=== PATIENT | male | born 1965 | race Caucasian/White ===

== ENCOUNTER 2020-02-06 07:38 | Outpatient (REF) | payer BC, SELFPAY ==
[2020-02-06 11:10] LABS: Estimated Average Glucose 194 mg/dL; Hemoglobin A1c % 8.4 %
[2020-02-06 11:28] LABS: Anion Gap 17 (12-20); Blood Urea Nitrogen 13 mg/dL (9-16); Calcium 9.4 mg/dL (8.4-10.2); Carbon Dioxide 24 mmol/L (22-29); Chloride 102 mmol/L (96-108); Estimated Glomerular Filt Rate > 60; Glucose Random 210 mg/dL (60-115); Potassium 4.7 mmol/l (3.3-5.1); Sodium 138 mmol/L (135-145)
== END 2020-02-06 07:39 | disposition home or self-care (01) ==
LOC: HO.10HDL 07:38
PROVIDERS: Visit Provider Internal Medicine
DX: E11.9 Type 2 diabetes mellitus without complications (principal); I10 Essential (primary) hypertension
CPT/HCPCS: 80048; 83036

== ENCOUNTER 2020-03-07 11:49 | Outpatient (REF) | payer BC, SELFPAY ==
[2020-03-07 14:07] LABS: Glucose Urine UA 250 MG/DL (NEG); Leukocyte Esterase Urine NEG (NEG); Nitrite Urine NEG (NEG); PH 5.5 (5.0-8.0); Specific Gravity - Urine >= 1.030 (1.005-1.025); Urine Blood 3+ (NEG); Urine Ketones 5 MG/DL (NEG); Urine Protein NEG (NEG-TRACE)
[2020-03-07 14:08] LABS: Appearance Urine CLEAR; Color Urine YELLOW
[2020-03-07 14:18] LABS: Calcium Oxalate Crystals Urine 2+ /LPF; Mucus Urine 2+ /LPF; Squamous Epithelial Cell Urine 1+ /LPF; WBC Urine 0-2 /HPF (0-4)
== END 2020-03-07 11:50 | disposition home or self-care (01) ==
LOC: HO.10HDL 11:49
PROVIDERS: Visit Provider Internal Medicine
DX: R31.9 Hematuria, unspecified (principal)
CPT/HCPCS: 81001; 87086; 87088

== ENCOUNTER 2020-09-25 07:20 | Outpatient (REF) | payer BC, SELFPAY ==
[2020-09-25 08:21] LABS: MANUAL DIFF FLAG NO
[2020-09-25 08:30] LABS: Basophils Percent Auto 0.8 % (0-2); Eosinophils Absolute Auto 0.1 X10*3/uL (0.0-0.4); Eosinophils Percent Auto 2.5 % (0-4); Hematocrit 48.1 % (42-52); Hemoglobin 15.6 g/dl (14.0-18.0); Imm Gran Abs Auto 0.02 X10*3/uL (0.00-0.03); Imm Gran Pct Auto 0.4 % (0.0-0.4); Lymphocytes Absolute Auto 1.4 X10*3/uL (1.2-4.9); Lymphocytes Percent Auto 27.3 % (20-40); Mean Corpuscular HGB Conc 32.4 g/dl (31.0-36.0); Mean Corpuscular Hemoglobin 30.1 pg (27.0-33.0); Mean Corpuscular Volume 92.9 fL (80-98); Mean Platelet Volume 9.5 fL (9.4-12.4); Monocytes Absolute Auto 0.5 X10*3/uL (0.1-1.2); Monocytes Percent Auto 9.1 % (2-11); Neutrophils Absolute Auto 3.2 X10*3/uL (2.0-8.3); Neutrophils Percent Auto 59.9 % (45-73); Platelet Count 211 X10*3/uL (160-400); Red Blood Count 5.18 X10*6/uL (4.60-5.80); Red Cell Distribution Width 11.6 % (11.0-16.0); White Blood Count 5.3 X10*3/uL (4.8-10.8)
[2020-09-25 08:33] LABS: Estimated Average Glucose 186 mg/dL; Hemoglobin A1c % 8.1 %
[2020-09-25 08:49] LABS: Alanine Aminotransferase 34 U/L (0-40); Albumin Level 4.1 g/dL (3.5-5.0); Alkaline Phosphatase 68 U/L (39-117); Anion Gap 11 (12-20); Aspartate Amino Transferase 26 U/L (5-37); Bilirubin Total 0.8 mg/dL (0.0-1.0); Blood Urea Nitrogen 13 mg/dL (9-16); Calcium 9.2 mg/dL (8.4-10.2); Carbon Dioxide 27 mmol/L (22-29); Chloride 106 mmol/L (96-108); Cholesterol 161 mg/dL; Estimated Glomerular Filt Rate > 60; Glucose Random 132 mg/dL (60-115); HDL Cholesterol 34 mg/dL; LDL Cholesterol Calculated 104 mg/dl; Potassium 4.4 mmol/L (3.3-5.1); Sodium 140 mmol/L (135-145); Total Protein 6.7 g/dL (6.5-8.0); Triglycerides 118 mg/dL
[2020-09-25 09:13] LABS: Microalbum/Creatinine Ratio Ur 8.6 ug/mg cr
== END 2020-09-25 07:21 | disposition home or self-care (01) ==
LOC: HO.LAB 07:20
PROVIDERS: PCP Internal Medicine; Visit Provider Internal Medicine
DX: E11.9 Type 2 diabetes mellitus without complications (principal); N20.0 Calculus of kidney
CPT/HCPCS: 36415; 80053; 80061; 82043; 83036; 85025

== ENCOUNTER 2020-09-30 10:44 | Outpatient (REF) | payer BC, SELFPAY ==
[2020-09-30 13:59] LABS: Glucose Urine UA NEG (NEG); Leukocyte Esterase Urine NEG (NEG); Nitrite Urine NEG (NEG); PH 5.5 (5.0-8.0); Specific Gravity - Urine >= 1.030 (1.005-1.025); Urine Blood NEG (NEG); Urine Ketones 5 MG/DL (NEG); Urine Protein NEG (NEG-TRACE)
[2020-09-30 14:17] LABS: Appearance Urine CLEAR; Color Urine YELLOW
[2020-09-30 14:33] LABS: C Reactive Protein 0.22 mg/dL (< or = 0.50)
[2020-09-30 14:46] LABS: Vitamin B12 315 pg/mL (200-900)
[2020-09-30 15:07] LABS: Creatinine Urine 229.94 mg/dL; Microalbum/Creatinine Ratio Ur 10.8 ug/mg cr
[2020-10-03 14:36] LABS: Anti Nuclear Antibody Screen NEGATIVE (NEGATIVE)
== END 2020-09-30 10:45 | disposition home or self-care (01) ==
LOC: HO.10HDL 10:44
PROVIDERS: Visit Provider Internal Medicine
DX: E11.9 Type 2 diabetes mellitus without complications (principal); Z85.46 Personal history of malignant neoplasm of prostate; M79.10 Myalgia, unspecified site
CPT/HCPCS: 36415; 81003; 82043; 82550; 82607; 86038; 86039; 86140

== ENCOUNTER 2021-01-02 10:21 | Outpatient (REF) | payer BC, SELFPAY ==
[2021-01-02 13:54] LABS: Basophils Percent Auto 0.7 % (0-2); Eosinophils Absolute Auto 0.1 X10*3/uL (0.0-0.4); Eosinophils Percent Auto 2.2 % (0-4); Hematocrit 47.1 % (42-52); Hemoglobin 15.6 g/dl (14.0-18.0); Imm Gran Abs Auto 0.02 X10*3/uL (0.00-0.03); Imm Gran Pct Auto 0.3 % (0.0-0.4); Lymphocytes Absolute Auto 1.6 X10*3/uL (1.2-4.9); Lymphocytes Percent Auto 27.3 % (20-40); MANUAL DIFF FLAG NO; Mean Corpuscular HGB Conc 33.1 g/dl (31.0-36.0); Mean Corpuscular Hemoglobin 30.3 pg (27.0-33.0); Mean Corpuscular Volume 91.5 fL (80-98); Mean Platelet Volume 10.2 fL (9.4-12.4); Monocytes Absolute Auto 0.5 X10*3/uL (0.1-1.2); Monocytes Percent Auto 8.3 % (2-11); Neutrophils Absolute Auto 3.7 X10*3/uL (2.0-8.3); Neutrophils Percent Auto 61.2 % (45-73); Platelet Count 240 X10*3/uL (160-400); Red Blood Count 5.15 X10*6/uL (4.60-5.80); Red Cell Distribution Width 11.5 % (11.0-16.0)
[2021-01-02 14:51] LABS: Creatinine Urine 147.62 mg/dL; Microalbum/Creatinine Ratio Ur 7.4 ug/mg cr
[2021-01-02 15:27] LABS: Alanine Aminotransferase 34 U/L (0-40); Albumin Level 4.3 g/dL (3.5-5.0); Alkaline Phosphatase 52 U/L (39-117); Anion Gap 11 (12-20); Aspartate Amino Transferase 21 U/L (5-37); Bilirubin Total 0.7 mg/dL (0.0-1.0); Blood Urea Nitrogen 13 mg/dL (9-16); Calcium 9.5 mg/dL (8.4-10.2); Carbon Dioxide 28 mmol/L (22-29); Chloride 104 mmol/L (96-108); Estimated Glomerular Filt Rate > 60; Glucose Random 139 mg/dL (60-115); Potassium 4.5 mmol/L (3.3-5.1); Sodium 138 mmol/L (135-145); Total Protein 6.9 g/dL (6.5-8.0)
[2021-01-03 07:33] LABS: Estimated Average Glucose 163 mg/dL; Hemoglobin A1c % 7.3 %
== END 2021-01-02 10:22 | disposition home or self-care (01) ==
LOC: HO.10HDL 10:21
PROVIDERS: Visit Provider Internal Medicine
DX: E11.9 Type 2 diabetes mellitus without complications (principal); I10 Essential (primary) hypertension
CPT/HCPCS: 36415; 80053; 82043; 83036; 85025

== ENCOUNTER 2021-01-07 07:15 | Outpatient (REF) | payer BC, SELFPAY ==
--- NOTE | ~2021-01-07 | MR_ITS ---
EXAMINATION: MR CERVICAL SPINE WITHOUT CONTRAST CLINICAL INFORMATION: Bilateral arm pain, weakness, and numbness. Degenerative disc disease. Radiculopathy. COMPARISON: Most recent cervical spine MRI dated 06/19/2015 TECHNIQUE: MRI of the cervical spine was obtained using routine sequences without contrast. FINDINGS: VERTEBRAL BODIES AND PARASPINAL SOFT TISSUES: Reversal of the normal cervical lordosis, which may be positional or related to muscular spasm. No acute fracture or subluxation. No loss of vertebral body height. Loss of intervertebral disc height with disc desiccation at C4 through C7, similar when compared to the prior examination. No significant marrow edema. No evidence of acute osseous injury. The visualized paraspinal soft tissues are unremarkable. No abnormal signal within the visualized cord. CERVICOMEDULLARY JUNCTION AND VISUALIZED POSTERIOR FOSSA: Unremarkable. SPINAL LEVELS: C2-C3: No significant disc bulge. Left-sided facet arthropathy with minimal left neural foraminal stenosis, slightly increased when compared to the prior examination. C3-C4: Minimal disc bulge with left-sided uncinate spurring and mild left facet arthropathy causing mild left neural foraminal stenosis, unchanged. C4-C5: Broad-based disc bulge with a superimposed posterior central disc protrusion, slightly more prominent when compared to the prior examination. This completely effaces the ventral thecal sac and indents the adjacent cord. No abnormal cord signal. Bilateral facet arthropathy and uncinate spurring with moderate bilateral neural foraminal stenosis, right greater than left. C5-C6: Broad-based disc bulge with bilateral facet arthropathy and uncinate spurring causing moderate bilateral neural foraminal stenosis, unchanged. C6-C7: Broad-based disc bulge with bilateral uncinate spurring causing moderate left and mild right neural foraminal stenosis, unchanged. C7-T1: No significant disc bulge. No central canal or neural foraminal stenosis. MR/MR cervical spine wo con IMPRESSION: 1. Reversal of the normal cervical lordosis is redemonstrated, similar when compared to the prior examination. Findings may be positional or related to muscular spasm. No acute fracture or subluxation. 2. Broad-based disc bulge at C4-C5 with a superimposed posterior central disc protrusion which has slightly increased in prominence when compared to the prior examination. This indents the adjacent cord without abnormal cord signal. Bilateral facet arthropathy and uncinate spurring causing moderate bilateral neural foraminal stenosis, right greater than left, which is unchanged. 3. Additional disc bulges and bilateral neural foraminal stenosis are unchanged.
== END 2021-01-07 07:16 | disposition home or self-care (01) ==
LOC: HO.MRI 07:15
PROVIDERS: PCP Internal Medicine; Visit Provider Internal Medicine
DX: M54.2 Cervicalgia (principal)
CPT/HCPCS: 72141

== ENCOUNTER 2021-03-27 11:48 | Outpatient (REF) | payer BC, SELFPAY ==
[2021-03-27 14:15] LABS: Estimated Average Glucose 163 mg/dL; Hemoglobin A1c % 7.3 %
[2021-03-27 14:18] LABS: Anion Gap 13 (12-20); Blood Urea Nitrogen 11 mg/dL (9-16); Calcium 9.1 mg/dL (8.4-10.2); Carbon Dioxide 27 mmol/L (22-29); Chloride 105 mmol/L (96-108); Estimated Glomerular Filt Rate > 60; Glucose Random 126 mg/dL (60-115); Potassium 4.5 mmol/L (3.3-5.1); Sodium 140 mmol/L (135-145)
== END 2021-03-27 11:49 | disposition home or self-care (01) ==
LOC: HO.10HDL 11:48
PROVIDERS: Visit Provider Internal Medicine
DX: I10 Essential (primary) hypertension (principal); E11.9 Type 2 diabetes mellitus without complications
CPT/HCPCS: 36415; 80048; 83036

== ENCOUNTER 2021-07-15 07:25 | Outpatient (REF) | payer BC, SELFPAY ==
[2021-07-15 07:53] LABS: MANUAL DIFF FLAG NO
[2021-07-15 08:13] LABS: Basophils Absolute Auto 0.1 X10*3/uL (0.0-0.2); Basophils Percent Auto 0.8 % (0-2); Eosinophils Absolute Auto 0.1 X10*3/uL (0.0-0.4); Eosinophils Percent Auto 2.3 % (0-4); Hematocrit 49.2 % (42.0-52.0); Hemoglobin 16.3 g/dl (14.0-18.0); Imm Gran Abs Auto 0.02 X10*3/uL (0.00-0.03); Imm Gran Pct Auto 0.3 % (0.0-0.4); Lymphocytes Absolute Auto 1.7 X10*3/uL (1.2-4.9); Lymphocytes Percent Auto 28.5 % (20-40); Mean Corpuscular HGB Conc 33.1 g/dl (31.0-36.0); Mean Corpuscular Hemoglobin 30.3 pg (27.0-33.0); Mean Corpuscular Volume 91.4 fL (80.0-98.0); Mean Platelet Volume 9.4 fL (9.4-12.4); Monocytes Absolute Auto 0.6 X10*3/uL (0.1-1.2); Monocytes Percent Auto 10.1 % (2-11); Neutrophils Absolute Auto 3.5 x10*3/uL (2.0-8.3); Platelet Count 257 X10*3/uL (160-400); Red Blood Count 5.38 X10*6/uL (4.60-5.80); Red Cell Distribution Width 11.5 % (11.0-16.0)
[2021-07-15 08:27] LABS: Estimated Average Glucose 183 mg/dL
[2021-07-15 08:41] LABS: Alanine Aminotransferase 48 U/L (0-40); Albumin Level 4.4 g/dL (3.5-5.0); Alkaline Phosphatase 56 U/L (39-117); Anion Gap 15 (12-20); Aspartate Amino Transferase 25 U/L (5-37); Bilirubin Total 0.9 mg/dL (0.0-1.0); Blood Urea Nitrogen 16 mg/dL (9-16); Calcium 10.2 mg/dL (8.4-10.2); Carbon Dioxide 28 mmol/L (22-29); Chloride 101 mmol/L (96-108); Estimated Glomerular Filt Rate > 60; Glucose Random 207 mg/dL (60-115); Potassium 5.5 mmol/L (3.3-5.1); Sodium 138 mmol/L (135-145); Total Protein 7.4 g/dL (6.5-8.0)
[2021-07-15 09:09] LABS: Creatinine Urine 234.41 mg/dL; Microalbum/Creatinine Ratio Ur 27.3 ug/mg cr
== END 2021-07-15 07:26 | disposition home or self-care (01) ==
LOC: HO.LAB 07:25
PROVIDERS: PCP Internal Medicine; Visit Provider Internal Medicine
DX: E11.9 Type 2 diabetes mellitus without complications (principal); I10 Essential (primary) hypertension; N20.0 Calculus of kidney
CPT/HCPCS: 36415; 80053; 82043; 83036; 85025

== ENCOUNTER 2021-10-08 13:26 | Outpatient (REF) | payer BC, SELFPAY ==
[2021-10-08 14:37] LABS: Creatinine Urine 156.16 mg/dL
[2021-10-08 14:41] LABS: Estimated Average Glucose 174 mg/dL; Hemoglobin A1c % 7.7 %
[2021-10-08 14:54] LABS: Alanine Aminotransferase 38 U/L (0-40); Albumin Level 4.3 g/dL (3.5-5.0); Alkaline Phosphatase 59 U/L (39-117); Anion Gap 12 (12-20); Aspartate Amino Transferase 24 U/L (5-37); Bilirubin Total 0.5 mg/dL (0.0-1.0); Blood Urea Nitrogen 13 mg/dL (9-16); Calcium 9.4 mg/dL (8.4-10.2); Carbon Dioxide 28 mmol/L (22-29); Chloride 102 mmol/L (96-108); Estimated Glomerular Filt Rate > 60; Glucose Random 200 mg/dL (60-115); Potassium 4.9 mmol/L (3.3-5.1); Sodium 137 mmol/L (135-145); Total Protein 7.1 g/dL (6.5-8.0)
== END 2021-10-08 13:27 | disposition home or self-care (01) ==
LOC: HO.LAB 13:26
PROVIDERS: PCP Internal Medicine; Visit Provider Internal Medicine
DX: E11.9 Type 2 diabetes mellitus without complications (principal); I10 Essential (primary) hypertension
CPT/HCPCS: 36415; 80053; 82043; 83036

== ENCOUNTER 2022-01-11 08:09 | Outpatient (REF) | payer BC, SELFPAY ==
--- NOTE | 2022-01-11 14:07 | MHC.AU.ANO ---
Adult Audiological Evaluation Date of Visit: 01/11/22 Culture Manager Used: Not Applicable Reason for Appointment: Audiologic evaluation due to long-standing history of bilateral tinnitus which has progressed in loudness and now is constant. Hernán also reports increasing difficulties hearing, particularly when more than one person in speaking or in difficult listening environments. Does patient feel they have a hearing loss?: Yes If Yes, Which Ear?: Both Ears Has hearing been tested previously?: Yes Previous Hearing Test Results: Not available for review Hearing Handicap Inventory: HHIE SCORE: 14 Based on HHIE score, patient has: Mild to moderate perceived hearing handicap Ear History: Recent Ear Pain: Intermittent when cleaning ears. Bothersome Tinnitus/Ringing/Noises in Ears: Both Ears Ear used on the phone: Right Ear History of occupational noise exposure?: No History: No Medical History: Medical History: Diabetes, Prostate Cancer, Sarcoidisis, environmental allergies Medication List: Metformin, Glyburide, Dextroamphetamine, Lisinopril, allergy injections Otoscopy: Right Ear: Unremarkable Left Ear: Unremarkable Tympanometry: Tympanometry performed due to: To assess integrity of the middle ear system Right Ear: Normal Middle Ear System (Type A) Left Ear: Normal Middle Ear System (Type A) Otoacoustic Emissions Frequency Range Used: 1.6-8 kHz Right Ear Results: Present 1500 Hz Absent 2000-12,000 Hz Analysis: Present emissions suggest normal cochlear function Rules out peripheral hearing loss greater than a mild degree Reduced/Absent emissions suggest cochlear dysfunction Results are consistent with degree and configuration of hearing loss Left Ear Results: Present 1500 and 2000 Hz. Absent 3000-12,000 Hz Analysis: Present emissions suggest normal cochlear function Rules out peripheral hearing loss greater than a mild degree Reduced/Absent emissions suggest cochlear dysfunction Results are consistent with degree and configuration of hearing loss Hearing Evaluation: Transducer(s) Used: Insert Earphones Bone Conduction Method: Conventional Audiometry Stimuli Used: Pure Tones Right Ear: Description of Hearing: Mild to moderate low frequency mixed hearing loss at 250-1000 Hz, rising to normal hearing thresholds at 3821-1787 Hz, dropping to a mild to moderate mixed hearing loss at 5362-8557 Hz Left Ear: Description of Hearing: Moderate sensorineural hearing loss at 250-1000 Hz, rising to normal hearing levels at 1500 and 2000 Hz, dropping to a moderate high frequency sensorineural hearing loss 8094-5027 Hz Speech Recognition Threshold (SRT): Method Used: Monitored Live Voice Stimuli Used: Spondee Words Right Ear: 20 dB HL Left Ear: 25 dB HL Word Discrimination: Method: Recorded Lists Word Lists Used: Right Ear: 96% at 60 dB HL Left Ear: 92% at 65 dB HL Interpretation of Results: With this moderate low and high frequency bilateral hearing loss, Hernán will have difficulty distinguishing similar sounding words and speech likely does not sound clear, particularly which in adverse listening environments or the speaker is at a distance or not facing him. Discussed the theories of tinnitus and management strategies. Advise trial with binaural hearing aids. Recommendations: - Trial with amplification is recommended. - Hernán is advised to contact his insurance regarding to determine if he has any hearing aid benefit and which providers he may go to. If he would like to pursue hearing aids from this office, he may schedule a Hearing Aid Evaluation appointment within the next 6 months. - Audiological re-evaluation in one year. Will send a reminder card. Diagnosis: Primary Diagnosis: H90.3 Bilateral Sensorineural Hearing Loss Secondary Diagnosis: H93.13 Tinnitus, Bilateral Services Performed: Comprehensive Audiological Evaluation (CPT 90445) Diagnostic Otoacoustic Emissions (CPT 68379, 26+TC) Tympanometry (CPT 89236) Signature: Provider: Manda Caicedo, [facility]
== END 2022-01-11 08:10 | disposition home or self-care (01) ==
LOC: HO.SH 08:09
PROVIDERS: Visit Provider Internal Medicine
DX: Z01.118 Encounter for examination of ears and hearing with other abnormal findings (principal); H90.3 Sensorineural hearing loss, bilateral; H93.13 Tinnitus, bilateral
CPT/HCPCS: 92557; 92567; 92588

== ENCOUNTER 2022-01-25 08:40 | Outpatient (REF) | payer BC, SELFPAY ==
[2022-01-25 08:49] LABS: MANUAL DIFF FLAG NO
[2022-01-25 09:02] LABS: Basophils Absolute Auto 0.1 X10*3/uL (0.0-0.2); Basophils Percent Auto 1.1 % (0-2); Eosinophils Absolute Auto 0.1 X10*3/uL (0.0-0.4); Eosinophils Percent Auto 2.3 % (0-4); Hematocrit 48.2 % (42.0-52.0); Hemoglobin 15.7 g/dl (14.0-18.0); Imm Gran Abs Auto 0.02 X10*3/uL (0.00-0.03); Imm Gran Pct Auto 0.4 % (0.0-0.4); Lymphocytes Absolute Auto 1.8 X10*3/uL (1.2-4.9); Lymphocytes Percent Auto 34.7 % (20-40); Mean Corpuscular HGB Conc 32.6 g/dl (31.0-36.0); Mean Corpuscular Hemoglobin 29.9 pg (27.0-33.0); Mean Corpuscular Volume 91.8 fL (80.0-98.0); Mean Platelet Volume 9.5 fL (9.4-12.4); Monocytes Absolute Auto 0.4 X10*3/uL (0.1-1.2); Neutrophils Absolute Auto 2.8 x10*3/uL (2.0-8.3); Neutrophils Percent Auto 53.5 % (45-73); Platelet Count 218 X10*3/uL (160-400); Red Blood Count 5.25 X10*6/uL (4.60-5.80); Red Cell Distribution Width 11.5 % (11.0-16.0); White Blood Count 5.3 X10*3/uL (4.8-10.8)
[2022-01-25 09:10] LABS: Estimated Average Glucose 169 mg/dL; Hemoglobin A1c % 7.5 %
[2022-01-25 09:34] LABS: Alanine Aminotransferase 35 U/L (0-40); Albumin Level 4.1 g/dL (3.5-5.0); Alkaline Phosphatase 50 U/L (39-117); Anion Gap 15 (12-20); Aspartate Amino Transferase 24 U/L (5-37); Bilirubin Total 0.6 mg/dL (0.0-1.0); Blood Urea Nitrogen 15 mg/dL (9-16); Calcium 8.8 mg/dL (8.4-10.2); Carbon Dioxide 25 mmol/L (22-29); Chloride 105 mmol/L (96-108); Cholesterol 164 mg/dL; Estimated Glomerular Filt Rate > 60; Glucose Fasting 164 mg/dL (60-99); HDL Cholesterol 39 mg/dL; LDL Cholesterol Calculated 105 mg/dl; Potassium 4.5 mmol/L (3.3-5.1); Sodium 140 mmol/L (135-145); Total Protein 6.8 g/dL (6.5-8.0); Triglycerides 100 mg/dL
[2022-01-25 09:55] LABS: Creatinine Urine 181.63 mg/dL; Microalbum/Creatinine Ratio Ur 10.4 ug/mg cr
== END 2022-01-25 08:41 | disposition home or self-care (01) ==
LOC: HO.LAB 08:40
PROVIDERS: PCP Internal Medicine; Visit Provider Internal Medicine
DX: Z00.00 Encounter for general adult medical examination without abnormal findings (principal); E11.9 Type 2 diabetes mellitus without complications
CPT/HCPCS: 36415; 80053; 80061; 82043; 83036; 85025

== ENCOUNTER 2022-02-22 16:55 | Outpatient (REF) | payer BC, SELFPAY ==
--- NOTE | ~2022-02-22 | XR_ITS ---
EXAMINATION: XR CERVICAL SPINE CLINICAL INFORMATION: Pain radiating to the arms for about a month. COMPARISON: MR cervical spine 01/07/2021. TECHNIQUE: 6 views of the cervical spine, inclusive of flexion and extension views, were obtained. FINDINGS: Anterior cervical fusion hardware and interdisc spacer at C4-C5. No evidence of hardware failure. No acute compression deformities. Again noted reversal of the normal cervical lordosis, nonspecific. Moderate to severe disc height loss and uncovertebral hypertrophy in the mid and lower cervical spine causing various degrees of neural foraminal encroachment on the oblique views and some degree of central canal narrowing. No prevertebral soft tissue thickening. The lung apices are clear. XR/XR cervical spine 5V IMPRESSION: 1. Anterior cervical fusion hardware at C4-C5. No evidence of hardware failure. 2. No acute compression deformities. 3. Moderate to severe cervical spondylosis in the mid and lower cervical spine causing some degree of neural foraminal encroachment and canal narrowing. If clinically deemed appropriate, further details could be achieved with an MR of the cervical spine.
== END 2022-02-22 16:56 | disposition home or self-care (01) ==
LOC: HO.XRAY 16:55
PROVIDERS: PCP Internal Medicine; Visit Provider Internal Medicine
DX: M54.2 Cervicalgia (principal)
CPT/HCPCS: 72050

== ENCOUNTER 2022-03-26 08:59 | Outpatient (REF) | payer BC, SELFPAY ==
--- NOTE | ~2022-03-26 | MR_ITS ---
EXAMINATION: MR CERVICAL SPINE WITHOUT CONTRAST CLINICAL INFORMATION: History of C4-C5 fusion. Radicular pain radiating into the right wrist. COMPARISON: Cervical spine MRI 01/07/2021. TECHNIQUE: MRI of the cervical spine was obtained using routine sequences without contrast. FINDINGS: There are chronic postoperative changes of an anterior cervical discectomy and fusion at C4-C5. There is nonspecific straightening of the cervical lordosis. Alignment is otherwise normal. Vertebral heights are preserved. No acute bone marrow signal changes. There is slight loss of intervertebral disc height and T2 signal intensity at C5-C6 and C6-C7. Disc desiccation visualized at multiple additional levels. There is no cord compression or abnormal intramedullary signal changes. The cervicomedullary junction is normal. Limited visualization of the posterior fossa reveals no abnormal finding. Occipital condyles and lateral C1 masses are intact. The atlantodental joint is normal. C1-C2 articular facet joints are unremarkable. At C2-C3 the annular contour is normal. No canal or neuroforaminal compromise. At C3-C4 there is a slightly bulging disc. No canal stenosis. Asymmetric uncovertebral joint spurring and facet degenerative change causes mild left neuroforaminal encroachment. At C4-C5 there is no canal or neuroforaminal compromise. At C5-C6 there is a small central superimposed upon a bulging disc. Mild canal stenosis. Uncovertebral joint spurring and facet degenerative change causes severe left and moderate right neuroforaminal encroachment. At C6-C7 there is a slightly bulging disc. No canal stenosis. Uncovertebral joint spurring and facet degenerative change cause mild left neuroforaminal encroachment. At C7-T1 the annular contour is normal. No canal or neuroforaminal compromise. Visualized soft tissues of the neck are normal. Vascular flow voids are maintained. MR/MR cervical spine wo con IMPRESSION: There are chronic postoperative changes of an anterior cervical discectomy and fusion at C4-C5. There is junctional spondylosis below the fusion at the level of C5-C6 where there is mild canal stenosis. Otherwise no canal compromise. No cord compression or abnormal intramedullary signal changes. There are varying degrees of neuroforaminal encroachment related to uncovertebral joint spurring and facet degenerative change as described above. For instance at C5-C6 there is severe left and moderate right neuroforaminal narrowing.
== END 2022-03-26 09:00 | disposition home or self-care (01) ==
LOC: HO.MRI 08:59
PROVIDERS: Visit Provider Internal Medicine
DX: M43.22 Fusion of spine, cervical region (principal); M54.10 Radiculopathy, site unspecified
CPT/HCPCS: 72141

== ENCOUNTER 2022-06-18 16:14 | Outpatient (REF) | payer BC, SELFPAY ==
[2022-06-18 16:29] LABS: MANUAL DIFF FLAG NO
[2022-06-18 17:21] LABS: Basophils Absolute Auto 0.1 X10*3/uL (0.0-0.2); Basophils Percent Auto 0.9 % (0-2); Eosinophils Absolute Auto 0.1 X10*3/uL (0.0-0.4); Eosinophils Percent Auto 2.4 % (0-4); Hematocrit 47.9 % (42.0-52.0); Imm Gran Abs Auto 0.01 X10*3/uL (0.00-0.03); Imm Gran Pct Auto 0.2 % (0.0-0.4); Lymphocytes Absolute Auto 1.8 X10*3/uL (1.2-4.9); Lymphocytes Percent Auto 32.2 % (20-40); Mean Corpuscular HGB Conc 33.4 g/dl (31.0-36.0); Mean Corpuscular Hemoglobin 30.5 pg (27.0-33.0); Mean Corpuscular Volume 91.4 fL (80.0-98.0); Mean Platelet Volume 9.9 fL (9.4-12.4); Monocytes Absolute Auto 0.5 X10*3/uL (0.1-1.2); Monocytes Percent Auto 9.4 % (2-11); Neutrophils Percent Auto 54.9 % (45-73); Platelet Count 247 X10*3/uL (160-400); Red Blood Count 5.24 X10*6/uL (4.60-5.80); Red Cell Distribution Width 11.6 % (11.0-16.0); White Blood Count 5.4 X10*3/uL (4.8-10.8)
[2022-06-18 17:40] LABS: Estimated Average Glucose 212 mg/dL
[2022-06-18 18:04] LABS: Alanine Aminotransferase 43 U/L (0-40); Albumin Level 4.4 g/dL (3.5-5.0); Alkaline Phosphatase 61 U/L (39-117); Anion Gap 14 (12-20); Aspartate Amino Transferase 22 U/L (5-37); Bilirubin Total 0.4 mg/dL (0.0-1.0); Blood Urea Nitrogen 16 mg/dL (9-16); Calcium 9.6 mg/dL (8.4-10.2); Carbon Dioxide 28 mmol/L (22-29); Chloride 102 mmol/L (96-108); Creatinine Urine 113.97 mg/dL; Estimated Glomerular Filt Rate > 60; Glucose Random 204 mg/dL (60-115); Microalbum/Creatinine Ratio Ur 38.6 ug/mg cr; Potassium 5.3 mmol/L (3.3-5.1); Sodium 139 mmol/L (135-145); Total Protein 7.2 g/dL (6.5-8.0)
== END 2022-06-18 16:15 | disposition home or self-care (01) ==
LOC: HO.LAB 16:14
PROVIDERS: PCP Internal Medicine; Visit Provider Internal Medicine
DX: I10 Essential (primary) hypertension (principal); E11.9 Type 2 diabetes mellitus without complications
CPT/HCPCS: 36415; 80053; 82043; 83036; 85025

== ENCOUNTER 2023-01-27 06:59 | Outpatient (REF) | payer BC, SELFPAY ==
[2023-01-27 08:00] LABS: Estimated Average Glucose 166 mg/dL; Hemoglobin A1c % 7.4 % (<6.0)
[2023-01-27 08:16] LABS: Alanine Aminotransferase 30 U/L (0-40); Albumin Level 4.1 g/dL (3.5-5.0); Alkaline Phosphatase 56 U/L (39-117); Anion Gap 14 (12-20); Aspartate Amino Transferase 21 U/L (5-37); Bilirubin Total 0.7 mg/dL (0.0-1.0); Blood Urea Nitrogen 11 mg/dL (9-16); Calcium 9.6 mg/dL (8.4-10.2); Carbon Dioxide 25 mmol/L (22-29); Chloride 104 mmol/L (96-108); Estimated Glomerular Filt Rate > 60; Glucose Random 153 mg/dL (60-115); Potassium 3.9 mmol/L (3.3-5.1); Sodium 139 mmol/L (135-145); Total Protein 7.1 g/dL (6.5-8.0)
[2023-01-27 09:56] LABS: Creatinine Urine 152.21 mg/dL; Microalbum/Creatinine Ratio Ur 11.1 ug/mg cr (<30)
== END 2023-01-27 07:00 | disposition home or self-care (01) ==
LOC: HO.LAB 06:59
PROVIDERS: PCP Internal Medicine; Visit Provider Internal Medicine
DX: I10 Essential (primary) hypertension (principal); E11.9 Type 2 diabetes mellitus without complications
CPT/HCPCS: 36415; 80053; 82043; 82570; 83036

== ENCOUNTER 2023-02-04 07:41 | Outpatient (REF) | payer BC, SELFPAY ==
--- NOTE | ~2023-02-04 | XR_ITS ---
EXAMINATION: XR CHEST CLINICAL INFORMATION: Hypertension COMPARISON: 10/30/2019 TECHNIQUE: 2 views of the chest were obtained. FINDINGS: Diaphragmatic elevations are stable. No significant abnormality is noted involving the heart, lungs, mediastinum or bony thorax. XR/XR chest 2V IMPRESSION: Unremarkable examination with no interval change.
[2023-02-04 07:55] LABS: MANUAL DIFF FLAG NO
[2023-02-04 08:12] LABS: Basophils Percent Auto 0.8 % (0-2); Eosinophils Absolute Auto 0.2 X10*3/uL (0.0-0.4); Eosinophils Percent Auto 2.9 % (0-4); Hematocrit 47.8 % (42.0-52.0); Hemoglobin 16.1 g/dl (14.0-18.0); Imm Gran Abs Auto 0.01 X10*3/uL (0.00-0.03); Imm Gran Pct Auto 0.2 % (0.0-0.4); Lymphocytes Absolute Auto 1.7 X10*3/uL (1.2-4.9); Lymphocytes Percent Auto 33.1 % (20-40); Mean Corpuscular HGB Conc 33.7 g/dl (31.0-36.0); Mean Corpuscular Hemoglobin 30.6 pg (27.0-33.0); Mean Corpuscular Volume 90.7 fL (80.0-98.0); Mean Platelet Volume 9.5 fL (9.4-12.4); Monocytes Absolute Auto 0.5 X10*3/uL (0.1-1.2); Monocytes Percent Auto 9.4 % (2-11); Neutrophils Absolute Auto 2.8 x10*3/uL (2.0-8.3); Neutrophils Percent Auto 53.6 % (45-73); Platelet Count 246 X10*3/uL (160-400); Red Blood Count 5.27 X10*6/uL (4.60-5.80); Red Cell Distribution Width 11.6 % (11.0-16.0); White Blood Count 5.2 X10*3/uL (4.8-10.8)
[2023-02-04 08:36] LABS: Cholesterol 171 mg/dL (<200); HDL Cholesterol 41 mg/dL (>40); LDL Cholesterol Calculated 109 mg/dL (<100); Triglycerides 106 mg/dL (<150)
== END 2023-02-04 07:42 | disposition home or self-care (01) ==
LOC: HO.LAB 07:41
PROVIDERS: PCP Internal Medicine; Visit Provider Internal Medicine
DX: E11.9 Type 2 diabetes mellitus without complications (principal); I10 Essential (primary) hypertension; Z87.442 Personal history of urinary calculi
CPT/HCPCS: 36415; 71046; 80061; 85025

== ENCOUNTER 2023-05-28 09:44 | Outpatient (REF) | payer BC, SELFPAY ==
[2023-05-28 10:05] LABS: MANUAL DIFF FLAG NO
[2023-05-28 10:36] LABS: Basophils Percent Auto 0.5 % (0-2); Eosinophils Absolute Auto 0.1 X10*3/uL (0.0-0.4); Eosinophils Percent Auto 2.2 % (0-4); Hemoglobin 14.9 g/dl (14.0-18.0); Imm Gran Abs Auto 0.01 X10*3/uL (0.00-0.03); Imm Gran Pct Auto 0.3 % (0.0-0.4); Lymphocytes Percent Auto 26.6 % (20-40); Mean Corpuscular HGB Conc 33.9 g/dl (31.0-36.0); Mean Corpuscular Hemoglobin 30.8 pg (27.0-33.0); Mean Corpuscular Volume 91.1 fL (80.0-98.0); Mean Platelet Volume 9.8 fL (9.4-12.4); Monocytes Absolute Auto 0.3 X10*3/uL (0.1-1.2); Monocytes Percent Auto 8.1 % (2-11); Neutrophils Absolute Auto 2.3 x10*3/uL (2.0-8.3); Neutrophils Percent Auto 62.3 % (45-73); Platelet Count 214 X10*3/uL (160-400); Red Blood Count 4.83 X10*6/uL (4.60-5.80); Red Cell Distribution Width 11.7 % (11.0-16.0); White Blood Count 3.7 X10*3/uL (4.8-10.8)
[2023-05-28 10:57] LABS: Estimated Average Glucose 200 mg/dL; Hemoglobin A1c % 8.6 % (<6.0)
[2023-05-28 11:07] LABS: Alanine Aminotransferase 22 U/L (0-40); Albumin Level 3.8 g/dL (3.5-5.0); Alkaline Phosphatase 79 U/L (39-117); Anion Gap 12 (12-20); Aspartate Amino Transferase 13 U/L (5-37); Bilirubin Total 0.4 mg/dL (0.0-1.0); Blood Urea Nitrogen 13 mg/dL (9-16); Calcium 9.1 mg/dL (8.4-10.2); Carbon Dioxide 28 mmol/L (22-29); Chloride 104 mmol/L (96-108); Estimated Glomerular Filt Rate > 60; Glucose Random 297 mg/dL (60-115); Potassium 3.7 mmol/L (3.3-5.1); Sodium 140 mmol/L (135-145); Total Protein 6.6 g/dL (6.5-8.0)
[2023-05-28 11:32] LABS: Creatinine Urine 73.93 mg/dL; Microalbum/Creatinine Ratio Ur 13.5 ug/mg cr (<30)
== END 2023-05-28 09:45 | disposition home or self-care (01) ==
LOC: HO.LAB 09:44
PROVIDERS: PCP Internal Medicine; Visit Provider Internal Medicine
DX: E11.9 Type 2 diabetes mellitus without complications (principal); I10 Essential (primary) hypertension
CPT/HCPCS: 36415; 80053; 82043; 82570; 83036; 85025

== ENCOUNTER 2023-09-28 07:30 | Outpatient (REF) | payer BC, SELFPAY ==
[2023-09-28 08:34] LABS: Estimated Average Glucose 183 mg/dL
[2023-09-28 08:57] LABS: Anion Gap 14 (12-20); Blood Urea Nitrogen 14 mg/dL (9-16); Calcium 9.8 mg/dL (8.4-10.2); Carbon Dioxide 28 mmol/L (22-29); Chloride 103 mmol/L (96-108); Estimated Glomerular Filt Rate > 60; Glucose Random 206 mg/dL (60-115); Potassium 4.5 mmol/L (3.3-5.1); Sodium 140 mmol/L (135-145)
== END 2023-09-28 07:31 | disposition home or self-care (01) ==
LOC: HO.LAB 07:30
PROVIDERS: PCP Internal Medicine; Visit Provider Internal Medicine
DX: E11.9 Type 2 diabetes mellitus without complications (principal)
CPT/HCPCS: 36415; 80048; 83036

== ENCOUNTER 2024-01-19 11:05 | Outpatient (REF) | payer BC, SELFPAY ==
[2024-01-19 12:23] LABS: Appearance Urine Clear; Color Urine Straw; Glucose Urine UA >=1000 mg/dL (Negative); Leukocyte Esterase Urine Negative (Negative); Nitrite Urine Negative (Negative); UMIC TRIGGER UACC YES; Urine Blood Moderate (2+) (Negative); Urine Ketones Trace mg/dL (Negative); Urine Protein Negative (Neg-Trace)
[2024-01-19 12:27] LABS: Bacteria Urine None Seen (None Seen); Hyaline Casts Urine 0-2 /LPF (0-2); RBC Urine >20 /HPF (0-2); Squamous Epithelial Cell Urine 0-2 /HPF (0-2); WBC Urine 0-5 /HPF (0-5)
== END 2024-01-19 11:06 | disposition home or self-care (01) ==
LOC: HO.LAB 11:05
PROVIDERS: PCP Internal Medicine; Visit Provider Internal Medicine
DX: R30.0 Dysuria (principal)
CPT/HCPCS: 81001; 87086

== ENCOUNTER 2024-01-24 12:24 | Outpatient (REF) | payer BC, SELFPAY ==
[2024-01-24 12:37] LABS: MANUAL DIFF FLAG NO
[2024-01-24 13:31] LABS: Basophils Percent Auto 0.7 % (0-2); Eosinophils Absolute Auto 0.1 X10*3/uL (0.0-0.4); Hematocrit 46.1 % (42.0-52.0); Hemoglobin 15.3 g/dl (14.0-18.0); Imm Gran Abs Auto 0.01 X10*3/uL (0.00-0.03); Imm Gran Pct Auto 0.2 % (0.0-0.4); Lymphocytes Percent Auto 24.9 % (20-40); Mean Corpuscular HGB Conc 33.2 g/dl (31.0-36.0); Mean Corpuscular Hemoglobin 31.4 pg (27.0-33.0); Mean Corpuscular Volume 94.7 fL (80.0-98.0); Mean Platelet Volume 9.7 fL (9.4-12.4); Monocytes Absolute Auto 0.4 X10*3/uL (0.1-1.2); Monocytes Percent Auto 9.2 % (2-11); Neutrophils Absolute Auto 2.5 x10*3/uL (2.0-8.3); Platelet Count 220 X10*3/uL (160-400); Red Blood Count 4.87 X10*6/uL (4.60-5.80); Red Cell Distribution Width 11.4 % (11.0-16.0)
[2024-01-24 14:05] LABS: Estimated Average Glucose 148 mg/dL; Hemoglobin A1C 217.9684 umol/L; Hemoglobin A1c % 6.8 % (<6.0); Total Hemoglobin (HGBA1C) 4307.2856 umol/L
[2024-01-24 14:16] LABS: Alanine Aminotransferase 19 U/L (0-40); Albumin Level 4.2 g/dL (3.5-5.0); Alkaline Phosphatase 59 U/L (39-117); Anion Gap 13 (12-20); Aspartate Amino Transferase 13 U/L (5-37); Bilirubin Total 0.3 mg/dL (0.0-1.0); Blood Urea Nitrogen 14 mg/dL (9-16); Calcium 9.9 mg/dL (8.4-10.2); Carbon Dioxide 28 mmol/L (22-29); Chloride 106 mmol/L (96-108); Estimated Glomerular Filt Rate > 60; Glucose Random 108 mg/dL (60-115); Potassium 4.4 mmol/L (3.3-5.1); Sodium 143 mmol/L (135-145)
[2024-01-24 14:17] LABS: Creatinine Urine 67.83 mg/dL; Microalbum/Creatinine Ratio Ur 20.6 ug/mg cr (<30)
== END 2024-01-24 12:25 | disposition home or self-care (01) ==
LOC: HO.LAB 12:24
PROVIDERS: PCP Internal Medicine; Visit Provider Internal Medicine
DX: E11.9 Type 2 diabetes mellitus without complications (principal); I10 Essential (primary) hypertension
CPT/HCPCS: 36415; 80053; 82043; 82570; 83036; 85025

== ENCOUNTER 2024-03-27 07:13 | Outpatient (REF) | payer BC, SELFPAY ==
[2024-03-27 07:27] LABS: MANUAL DIFF FLAG NO
[2024-03-27 07:49] LABS: Basophils Percent Auto 0.4 % (0-2); Eosinophils Absolute Auto 0.1 X10*3/uL (0.0-0.4); Eosinophils Percent Auto 2.6 % (0-4); Hematocrit 47.5 % (42.0-52.0); Hemoglobin 15.7 g/dl (14.0-18.0); Imm Gran Abs Auto 0.03 X10*3/uL (0.00-0.03); Imm Gran Pct Auto 0.7 % (0.0-0.4); Lymphocytes Absolute Auto 1.1 X10*3/uL (1.2-4.9); Mean Corpuscular HGB Conc 33.1 g/dl (31.0-36.0); Mean Corpuscular Hemoglobin 31.3 pg (27.0-33.0); Mean Corpuscular Volume 94.6 fL (80.0-98.0); Mean Platelet Volume 9.5 fL (9.4-12.4); Monocytes Absolute Auto 0.5 X10*3/uL (0.1-1.2); Monocytes Percent Auto 9.8 % (2-11); Neutrophils Absolute Auto 2.9 x10*3/uL (2.0-8.3); Neutrophils Percent Auto 62.5 % (45-73); Platelet Count 229 X10*3/uL (160-400); Red Blood Count 5.02 X10*6/uL (4.60-5.80); Red Cell Distribution Width 11.9 % (11.0-16.0); White Blood Count 4.6 X10*3/uL (4.8-10.8)
[2024-03-27 08:25] LABS: Alanine Aminotransferase 27 U/L (0-40); Albumin Level 4.2 g/dL (3.5-5.0); Alkaline Phosphatase 60 U/L (39-117); Anion Gap 13 (12-20); Aspartate Amino Transferase 21 U/L (5-37); Bilirubin Total 0.6 mg/dL (0.0-1.0); Blood Urea Nitrogen 16 mg/dL (9-16); Carbon Dioxide 28 mmol/L (22-29); Chloride 103 mmol/L (96-108); Cholesterol 209 mg/dL (<200); Estimated Glomerular Filt Rate > 60; Glucose Fasting 162 mg/dL (60-99); HDL Cholesterol 45 mg/dL (>40); LDL Cholesterol Calculated 130 mg/dL (<100); Sodium 140 mmol/L (135-145); Total Protein 7.1 g/dL (6.5-8.0); Triglycerides 172 mg/dL (<150)
[2024-03-27 08:36] LABS: Estimated Average Glucose 151 mg/dL; Hemoglobin A1C 208.4222 umol/L; Hemoglobin A1c % 6.9 % (<6.0); Total Hemoglobin (HGBA1C) 4017.0047 umol/L
[2024-03-27 10:01] LABS: Creatinine Urine 67.68 mg/dL; Microalbum/Creatinine Ratio Ur 13.2 ug/mg cr (<30)
--- OUTSIDE RECORDS SUMMARY | 2024-03-28 18:32 | XMS_ITS | Continuity of Care Document ---
[facility] Organization [facility] Address [address] [place] [address] Problems Condition ICD9 code ICD10 code SNOMED code Start Date End Date S tatus Encounter for screening for other metabolic disorders Z13.228 Results Test Value / Unit Interpretation Reference Ran LIPID PANEL, STANDARD[[id number]]?Collected: 01/05/2023 12:09 PM?Specimen Received: 01/05/2023 12:09 PM?FASTING:YESFASTING: YES CHOLESTEROL, TOTAL [[id number]] 184 mg/dL N 200 mg/dL HDL CHOLESTEROL [[id number]] 41 mg/dL N > OR = 40 mg/dL TRIGLYCERIDES [[id number]] 137 mg/dL N 150 mg/dL LDL-CHOLESTEROL [[id number]] 118 mg/dL (calc) H Reference range: or = 2 CHD risk factors. LDL-C is now calculated using the Tremayne-Willard calculation, which is a validated novel method providing better accuracy than the Friedewald equation in the estimation of LDL-C. Tremayne MA et al. JOY. 2013;310(19): 1814-9441 (http://education.[employer].com/faq/LBI377) CHOL/HDLC RATIO [[id number]] 4.5 (calc) N 5 .0 (calc) NON HDL CHOLESTEROL [[id number]] 143 mg/dL (calc) H 130 mg/dL (calc) For patients with diabetes p elise 1 major ASCVD risk factor, treating to a non-HDL-C goal of 100 mg/dL (LDL-C of <70 mg/dL) is considered a therapeutic option. ALBUMIN, RANDOM URINE W/CREA TININE[[id number]]?Collected: 01/05/2023 12:09 PM?Specimen Received: 01/05/2023 12:09 PM?FASTING:YESFASTING: YES CREATININE, RANDOM URINE [[id number]] 180 mg/dL N 20-320 mg/dL ALBUMIN, URINE [[id number]] 1.7 mg/dL N Se e Note: mg/dL Reference Range:Reference Ra ngeNot established ALBUMIN/CREATININE RATIO, RANDOM URINE [[id number]] 9 mcg/mg creat N 30 mcg/mg creat The ADA defines abnormalitie s in albuminexcretion as follows: Albuminuria Category Result (mcg/mg creatinine) Normal to Mildly increased OR = 300 The ADA recommends that at least two of threespecimens collected within a 3-6 month period beabnormal before considering a patient to bewithin a diagnostic category. COMPREHENSIVE METABOLIC PANE L[[id number]]?Collected: 01/05/2023 12:09 PM?Specimen Received: 01/05/2023 12:09 PM?FASTING:YESFASTING: YES GLUCOSE [[id number]] 155 mg/dL H 65-99 mg/ dL Fasting reference interval F or someone without known diabetes, a glucosevalue >125 mg/dL indicates that they may havediabetes and this should be confirmed with afollow-up test. UREA NITROGEN (BUN) [[id number]] 14 mg/dL N 7-25 mg/dL CREATININE [[id number]] 1.08 mg/dL N 0.70-1 .30 mg/dL EGFR [[id number]] 80 mL/min/1.73m2 N >OR = 60 mL/min/1.73m2 BUN/CREATININE RATIO [[id number]] SEE NOTE: (calc) 6-22 (calc) Not Reported: BUN and Creati nine are within reference range. SODIUM [[id number]] 139 mmol/L N 135-146 mm ol/L POTASSIUM [[id number]] 4.2 mmol/L N 3.5-5.3 mmol/L CHLORIDE [[id number]] 102 mmol/L N 98-110 m mol/L CARBON DIOXIDE [[id number]] 28 mmol/L N 20 -32 mmol/L CALCIUM [[id number]] 9.5 mg/dL N 8.6-10.3 mg/dL PROTEIN, TOTAL [[id number]] 7.2 g/dL N 6. 1-8.1 g/dL ALBUMIN [[id number]] 4.4 g/dL N 3.6-5.1 g /dL GLOBULIN [[id number]] 2.8 g/dL (calc) N 1.9-3 .7 g/dL (calc) ALBUMIN/GLOBULIN RATIO [[id number]] 1.6 (calc) N 1.0-2.5 (calc) BILIRUBIN, TOTAL [[id number]] 0.6 mg/dL N 0.2-1.2 mg/dL ALKALINE PHOSPHATASE [[id number]] 53 U/L N 35-144 U/L AST [[id number]] 19 U/L N 10-35 U/L ALT [[id number]] 28 U/L N 9-46 U/L HEMOGLOBIN A1c[[id number]]?Collected: 01/05/2023 12:09 PM?Specimen Received: 01/05/2023 12:09 PM?FASTING:YESFASTING: YES HEMOGLOBIN A1c [[id number]] 7.7 % of total Hgb H 5.7 % of total Hgb For someone without known di abetes, a hemoglobin [id number] of 6.5% or greater indicates that they may have diabetes and this should be confirmed with a follow-up test. For someone with known diabetes, a value 7% indicates that their diabetes is well controlled and a value greater than or equal to 7% indicates suboptimal control. A1c targets should be individualized based on duration of diabetes, age, comorbid conditions, and other considerations. Currently, no consensus exists regarding use ofhemoglobin A1c for diagnosis of diabetes for children. Clinical PDF Report [id number][ClinicalPDFReport1]?Collected: 01/05/2023 12:09 PM?Specimen Received: 01/05/2023 12:09 PM?FASTING:YESFASTING: YES Clinical PDF Report [id number] [ClinicalPDFReport1] ILSA Allergies, adverse reactions, alerts No known allergies and adverse reactions Medications No administered medications reported Vital Signs No vital signs reported Social History No smoking Hx information available
== END 2024-03-27 07:14 | disposition home or self-care (01) ==
LOC: HO.LAB 07:13
PROVIDERS: PCP Internal Medicine; Visit Provider Internal Medicine
DX: I10 Essential (primary) hypertension (principal); E11.9 Type 2 diabetes mellitus without complications
CPT/HCPCS: 36415; 80053; 80061; 82043; 82570; 83036; 85025

== ENCOUNTER 2024-07-23 14:24 | Outpatient (AMB) | payer BC, SELFPAY ==
--- NOTE | 2024-07-23 14:30 | MHC.PC.OV ---
Vital Signs 07/23/24 14:36 Height 5 ft 8 in Weight 178 lb BMI 27.1 BP 122/70 Blood Pressure Location Lt brachial Position Sitting Pulse 91 Temp 97.3 F Temp Source Axillary Pulse Oximetry (%) 99 Oxygen Delivery Method Room Air Intake Visit Reasons: Diab & new CA DX Residential Direct Support Professional Required: No Accompanied by: Self / Same As Patient Allergies Iodinated Contrast Media [IV DYE, IODINE CONTAINING CONTRAST ] Allergy (Severe, Unverified 07/24/24 09:50) MOUTH/THROAT ITCHING ENVIROMENTAL Allergy (Intermediate, Uncoded 07/24/24 09:50) HAYFEVER contrast dye Allergy (Unknown, Uncoded 07/24/24 09:50) oral itching CT scan dye Allergy (Unknown, Uncoded 07/24/24 09:50) Unknown seasonal allergies Allergy (Unknown, Uncoded 07/24/24 09:50) Unknown Medication List - Last Reconciled 07/24/24 by Jhon Yee MD dextroamphetamine-amphetamine 30 mg ER (Adderall XR) 30 mg PO DAILY empagliflozin (Jardiance) 25 mg PO DAILY enzalutamide (Xtandi) 160 mg PO DAILY gabapentin 300 mg PO DAILY glipizide ER 5 mg PO BID lisinopril 2.5 mg PO DAILY metformin 500 mg PO TID Tobacco use date assessed: 07/23/24 Dental Screening Dental Screen Date: 07/23/24 Did you have a dental visit in the last 12 months?: No Did you have a dental problem in the last 6 months where you did not have access to dental care?: No HPI Diab & new CA DX HPI Details 58-year-old male presents to the office to discuss his chronic medical conditions. Patient has diabetes mellitus for which she takes medications. Blood sugars are reasonably controlled. However with the his new chemotherapy drug, Xtandi the blood sugars have been rising. Compliant with medications and reporting no side effects. Does complain of tingling sensation and numbness in his feet on occasion. Patient has diagnosis of recurrent prostate cancer. He has had prostatectomy, followed by radiation and now on a medication. His oncologist is in [place]. Reporting symptoms of uneasiness, heartburn. He believes these could be symptoms from the new chemotherapy drug. [facility] Medical History (Updated 07/24/24 @ 09:54 by Jhon Yee MD) Hard of hearing Sarcoidosis Prostate cancer Diabetes mellitus Family History Mother No problems noted. Father No problems noted. Social History Housing: House Patient Tobacco Use Status: Never used Tobacco e-Cigarette/Vaping Use: Never Used service: No Current occupational status: employed Cognitive needs: No Hearing needs: Yes (bilateral hearing aids.) Vision needs: Yes (rx glasses) Questionnaire PHQ-9 Over the last 2 weeks, how often have you been bothered by any of the following problems? 1. Little interest or pleasure in doing things: not at all 2. Feeling down, depressed, or hopeless: not at all 3. Trouble falling or staying asleep, or sleeping too much: not at all 4. Feeling tired or having little energy: not at all 5. Poor appetite or overeating: not at all 6. Feeling bad about yourself - or that you are a failure or have let yourself or your family down: not at all 7. Trouble concentrating on things, such as reading the newspaper or watching television: not at all 8. Moving or speaking so slowly that other people could have noticed. Or the opposite - being so fidgety or restless that you have been moving around a lot more than usual: not at all 9. Thoughts that you would be better off or of hurting yourself in some way: not at all Total score: 0 Depression Screening Interpretation: Negative Depression Screening Done: Yes Source: Developed by Drs. Hasmukh Byrne, Mamie Stover, Kemar Lorenzo and colleagues, with an educational mavis from [employer]. Thrive Questionnaire Date Thrive assessed: 07/23/24 I am a: Patient Within the past 12 months, did the food you bought not last and you didn't have the money to get more?: Never true Within the past 12 months, did you worry whether your food would run out before you got money to buy more?: Never true Do you have trouble paying for medicines?: No Do you have trouble getting transportation to medical appointments?: No Do you have trouble paying your heating and electricity bill?: No Do you have trouble taking care of your child, family member or friend?: No Do you have trouble with day-to-day activities such as bathing, preparing meals, shopping, managing finances, etc.?: No Are you currently unemployed and looking for a job?: No Are you interested in more education?: No Currently or been in a relationship where the following occur: No concerns reported THRIVE Score: 0 AUDIT C Alcohol Use Questionnaire (AUDIT-C) 1. How often do you have a drink containing alcohol?: Never 3. How often do you have six or more drinks on one occasion?: Never Total Score: 0 SUNNY-7 AMB Questionnaire SUNNY-7 Date SUNNY - 7 assessed: 07/23/24 Feeling nervous, anxious, or on edge: 0 = Not at all Not being able to stop or control worryin = Not at all Worrying too much about different things: 0 = Not at all Trouble relaxin = Not at all Being so restless that it is hard to sit still: 0 = Not at all Becoming easily annoyed or irritable: 0 = Not at all Feeling afraid as if something awful might happen: 0 = Not at all Total SUNNY-7 score (0-4 normal; 5-9 mild; 10-14 moderate; 15-21 severe): 0 Source: Developed by Drs. Hasmukh Byrne, Mamie Stover, Kemar Lorenzo and colleagues, with an educational mavis from [employer]. Physical exam (Primary Care) Vital Signs: Last Vital Signs Temp 97.3 F 07/23/24 14:36 Pulse 91 07/23/24 14:36 BP 122/70 07/23/24 14:36 Pulse Ox 99 07/23/24 14:36 Oxygen Delivery Method Room Air 07/23/24 14:36 Care Plan Goal for BP management: Blood pressure is in range. BMI result Body Mass Index 27.1 BMI is in range. Tobacco/Smoking Status: Tobacco use Status Tobacco use date assessed 07/23/24 07/23/24 14:47 Patient Tobacco Use Status Never used Tobacco 07/23/24 14:47 e-Cigarette/Vaping Use Never Used 07/23/24 14:47 PHQ-9: PHQ-9 Score PHQ-9: Total score 0 07/23/24 14:47 Depression Screening Interpretation: Negative Thrive Assessment: Date of Thrive Assessment Date Thrive assessed 07/23/24 07/23/24 14:47 Currently or been in a relationship where the following occur: No concerns reported Advance Care Planning discussion: Exists, not on file Date of discussion: 07/23/24 Who was present: Patient Forms completed: Health Care Proxy Time spent: 1-15 minutes, not on file Actual minutes spent: 5 Const General: cooperative and healthy appearing Nutritional Appearance: well nourished Orientation/consciousness: patient oriented x3 Limitations: no limitations HENMT Head: Yes normal to inspection Eyes General: appearance normal, both eyes and all related structures Neck Neck: Yes normal visual inspection Chest Chest palpation & inspection: normal palpation of entire chest wall Resp Effort & Inspection: normal respiratory effort Neuro General: patient oriented x3 Coding Level of Care Code New Pt Level 4 (27275) Complex EM visit Add On G2211 Diagnoses Prostate cancer C61 Sarcoidosis D86.9 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 Xtandi to be continued. (2) Sarcoidosis: Code(s): D86.9 - Sarcoidosis, unspecified Category: Medical Plan: Chest x-ray has been ordered. (3) Osteoporosis as sequela of radiotherapy: Code(s): M81.8 - Other osteoporosis without current pathological fracture; Y84.2 - Radiological procedure and radiotherapy as the cause of abnormal reaction of the patient, or of later complication, without mention of misadventure at the time of the procedure Plan: A DEXA scan has been ordered. (4) Diabetes mellitus: Code(s): E11.9 - Type 2 diabetes mellitus without complications Category: Medical Plan: Blood work has been ordered. Patient is on glipizide, metformin. Based on the A1c results glipizide could be adjusted. (5) Hard of hearing: Code(s): H91.90 - Unspecified hearing loss, unspecified ear Category: Medical Plan: Condition is stable. Orders: Orders Liver Panel 07/23/24 C61 - Malignant neoplasm of prostate Lipid Panel 07/23/24 C6 - Malignant neoplasm of prostate UA and rflx microscopic 07/23/24 C6 - Malignant neoplasm of prostate Hemoglobin A1c 07/23/24 C6 - Malignant neoplasm of prostate Complete Blood Count no Diff 07/23/24 C6 - Malignant neoplasm of prostate Basic Metabolic Panel 07/23/24 C6 - Malignant neoplasm of prostate C Reactive Protein 07/23/24 C6 - Malignant neoplasm of prostate Thyroid Stimulating Hormone 07/23/24 C6 - Malignant neoplasm of prostate Microalbumin, Random (w Creat) 07/23/24 C6 - Malignant neoplasm of prostate XR chest 2V 07/23/24 D86.9 - Sarcoidosis, unspecified XR DEXA appendicular skeleton 07/23/24 M81.8 - Other osteoporosis without current pathological fracture, Y84.2 - Radiological procedure and radiotherapy as the cause of abnormal reaction of the patient, or of later complication, without mention of misadventure at the time of the procedure Referrals Gastroenterology Referral Z12.11 - Encounter for screening for malignant neoplasm of colon
[2024-07-23 14:36] VITALS: BP 122/70; PULSE 91; TEMP 36.3; O2SAT 99; BMI 27.1
== END 2024-07-23 15:16 | disposition home or self-care (01) ==
LOC: HO.HMCHD 14:25
PROVIDERS: PCP Internal Medicine; Visit Provider Internal Medicine
DX: C61 Malignant neoplasm of prostate (principal); D86.9 Sarcoidosis, unspecified; M81.8 Other osteoporosis without current pathological fracture; Y84.2 Radiological procedure and radiotherapy as the cause of abnormal reaction of the patient, or of later complication, without mention of misadventure at the time of the procedure; E11.9 Type 2 diabetes mellitus without complications; H91.90 Unspecified hearing loss, unspecified ear; Z00.00 Encounter for general adult medical examination without abnormal findings

== ENCOUNTER 2024-07-23 14:24 | Outpatient (REF) | payer BC, SELFPAY ==
--- NOTE | ~2024-07-23 | XR_ITS ---
EXAMINATION: XR CHEST CLINICAL INFORMATION: D86.9 - Sarcoidosis, unspecified COMPARISON: February 04, 2023 TECHNIQUE: 2 views of the chest were obtained. FINDINGS: Elevated left hemidiaphragm, unchanged. No consolidation, pleural effusion or pneumothorax. Cardiomediastinal silhouette size is normal. Mild multilevel thoracic spondylosis. XR/XR chest 2V IMPRESSION: No acute airspace disease. Stable chest. Electronically signed by: Donovan Dickinson MD 07/24/2024 07:43 AM EDT
[2024-07-23 16:25] LABS: Hematocrit 48.3 % (42.0-52.0); Hemoglobin 15.9 g/dl (14.0-18.0); Mean Corpuscular HGB Conc 32.9 g/dl (31.0-36.0); Mean Corpuscular Hemoglobin 31.2 pg (27.0-33.0); Mean Corpuscular Volume 94.7 fL (80.0-98.0); Mean Platelet Volume 9.6 fL (9.4-12.4); Platelet Count 251 X10*3/uL (160-400); Red Cell Distribution Width 11.8 % (11.0-16.0); White Blood Count 4.8 X10*3/uL (4.8-10.8)
[2024-07-23 16:38] LABS: Estimated Average Glucose 157 mg/dL; Hemoglobin A1C 223.8567 umol/L; Hemoglobin A1c % 7.1 % (<6.0); Total Hemoglobin (HGBA1C) 4146.2291 umol/L
[2024-07-23 17:10] LABS: Appearance Urine Clear; Color Urine Yellow; Glucose Urine UA >=1000 mg/dL (Negative); Leukocyte Esterase Urine Negative (Negative); Nitrite Urine Negative (Negative); Specific Gravity - Urine >= 1.030 (1.005-1.025); UMIC TRIGGER UA YES; Urine Blood Negative (Negative); Urine Ketones Trace mg/dL (Negative); Urine Protein Negative (Neg-Trace)
[2024-07-23 17:13] LABS: Bacteria Urine None Seen (None Seen); Hyaline Casts Urine 0-2 /LPF (0-2); RBC Urine 0-2 /HPF (0-2); Squamous Epithelial Cell Urine 0-2 /HPF (0-2); WBC Urine 0-5 /HPF (0-5)
[2024-07-23 17:55] LABS: Creatinine Urine 71.08 mg/dL; Microalbum/Creatinine Ratio Ur 9.8 ug/mg cr (<30)
[2024-07-23 19:18] LABS: Alanine Aminotransferase 18 U/L (0-40); Albumin Level 4.2 g/dL (3.5-5.0); Alkaline Phosphatase 70 U/L (39-117); Anion Gap 13 (12-20); Aspartate Amino Transferase 20 U/L (5-37); Bilirubin Direct 0.1 mg/dL (0.0-0.5); Bilirubin Total 0.3 mg/dL (0.0-1.0); Blood Urea Nitrogen 13 mg/dL (9-16); C Reactive Protein < 0.10 mg/dL (< or = 0.50); Calcium 9.9 mg/dL (8.4-10.2); Carbon Dioxide 27 mmol/L (22-29); Chloride 107 mmol/L (96-108); Cholesterol 195 mg/dL (<200); Estimated Glomerular Filt Rate > 60; Glucose Random 138 mg/dL (60-115); HDL Cholesterol 40 mg/dL (>40); LDL Cholesterol Calculated 106 mg/dL (<100); Potassium 4.2 mmol/L (3.3-5.1); Sodium 143 mmol/L (135-145); Total Protein 6.9 g/dL (6.5-8.0); Triglycerides 249 mg/dL (<150)
== END 2024-07-23 14:25 | disposition home or self-care (01) ==
LOC: HO.XRAY 14:24
PROVIDERS: PCP Internal Medicine; Visit Provider Internal Medicine
DX: C61 Malignant neoplasm of prostate (principal); D86.9 Sarcoidosis, unspecified; Z13.1 Encounter for screening for diabetes mellitus; Z13.6 Encounter for screening for cardiovascular disorders
CPT/HCPCS: 36415; 71046; 80048; 80061; 80076; 81001; 81003; 82043; 82570; 83036; 84443; 85027; 86140

== ENCOUNTER → 2024-07-23 15:32 | Outpatient (BNV) | payer BC, SELFPAY | PROVIDERS: PCP Internal Medicine; Visit Provider Radiology Diagnostic Radiology | DX: D86.9 Sarcoidosis, unspecified (principal) | CPT/HCPCS: 71046 ==

== ENCOUNTER 2024-08-22 08:09 | Outpatient (REF) | payer BC, SELFPAY ==
--- NOTE | ~2024-08-22 | MM_ITS ---
EXAMINATION: DXA BONE DENSITY AXIAL HISTORY: M81.0 - Age-related osteoporosis without current pathological fracture TECHNIQUE: [place]ggin Dual energy absorptiometry (DEXA) of the lumbar spine, total left hip, and femoral neck was performed. COMPARISON: There are no prior studies for comparison. FINDINGS: The bone mineral density of the lumbar spine is 1.100 with a T-score of -1.0, and a Z-score of -0.7. This is indicative of normal bone mineral density. The bone mineral density of the left total hip is 1.039 with a T-score of -0.4, and a Z-score of 0.0. This is indicative of normal bone mineral density. The bone mineral density of the left femoral neck is 1.014 with a T-score of -0.4, and a Z-score of 0.5. This is indicative of normal bone mineral density. FRACTURE RISK: The FRAX index suggests a risk of major osteoporotic fracture of 9.3%, and of hip fracture 0.2%. MM/XR DEXA axial skeleton IMPRESSION: Based on bone mineral density, and according to World Health Organization (WHO) criteria, the diagnosis is consistent with normal bone mineral density. All bone density values are in grams per centimeter squared (g/cm2). Statistically, 68% of repeat scans fall within 1 SD (+/- 0.010 g/cm2 for AP spine L1-L4) and 1 SD (+/- 0.012 g/cm2 for femur total) FRAX is a trademark of the [employer]'s [employer] Metabolic Bone Disease, a World Health Organization (WHO) Collaborating Center. Electronically signed by: Hasmukh Hernandez MD 08/22/2024 09:34 AM EDT
--- OUTSIDE RECORDS SUMMARY | 2024-08-22 08:19 | XMS_ITS | Continuity of Care Document ---
Author Organization [facility] Address [address] [place] [address] [place] [id number] Insurance Providers Payer Plan Claims Address Claims Phone Policy Number Group Number Relation Employer Guarantor Name Guarantor Guarantor Address Guarantor Phone Blue Cross Blue Plans [id number] Self Hernán Madsen 1965 [address] [place] [address] Blue Cross HMO [id number] Self Hernán Madsen 1965 [address] [place] [address] Problems Condition ICD9 code ICD10 code SNOMED code Start Date End Date S tatus Encounter for screening for other metabolic disorders Z13.228 Results Test Value / Unit Interpretation Reference Ran LIPID PANEL, STANDARD[[id number]]?Collected: 01/05/2023 12:09 PM?Specimen Received: 01/05/2023 12:09 PM?Source: [facility]:YESFASTING: YES CHOLESTEROL, TOTAL [[id number]] 184 mg/dL N 200 mg/dL HDL CHOLESTEROL [[id number]] 41 mg/dL N > OR = 40 mg/dL TRIGLYCERIDES [[id number]] 137 mg/dL N 150 mg/dL LDL-CHOLESTEROL [[id number]] 118 mg/dL (calc) H Reference range: or = 2 CHD risk factors. LDL-C is now calculated using the Radha calculation, which is a validated novel method providing better accuracy than the Friedewald equation in the estimation of LDL-C. Tremayne MA et al. JOY. 2013;310(19): 5762-9478 (http://education.[employer].UniSmart/faq/YQX072) CHOL/HDLC RATIO [[id number]] 4.5 (calc) N 5 .0 (calc) NON HDL CHOLESTEROL [[id number]] 143 mg/dL (calc) H 130 mg/dL (calc) For patients with diabetes p elise 1 major ASCVD risk factor, treating to a non-HDL-C goal of 100 mg/dL (LDL-C of <70 mg/dL) is considered a therapeutic option. ALBUMIN, RANDOM URINE W/CREA TININE[[id number]]?Collected: 01/05/2023 12:09 PM?Specimen Received: 01/05/2023 12:09 PM?Source: [facility]:YESFASTING: YES CREATININE, RANDOM URINE [[id number]] 180 mg/dL N 20-320 mg/dL ALBUMIN, URINE [[id number]] 1.7 mg/dL N Se e Note: mg/dL Reference Range:Reference Ra ngeNot established ALBUMIN/CREATININE RATIO, RANDOM URINE [[id number]] 9 mcg/mg creat N 30 mcg/mg creat The ADA defines abnormalitie s in albuminexcretion as follows: Albuminuria Category Result (mcg/mg creatinine) Normal to Mildly increased OR = 300 The ADA recommends that at least two of threespecimens collected within a 3-6 month period beabnormal before considering a patient to bewithin a diagnostic category. COMPREHENSIVE METABOLIC PANE L[[id number]]?Collected: 01/05/2023 12:09 PM?Specimen Received: 01/05/2023 12:09 PM?Source: [facility]:YESFASTING: YES GLUCOSE [[id number]] 155 mg/dL H 65-99 mg/ dL Fasting reference interval F or someone without known diabetes, a glucosevalue >125 mg/dL indicates that they may havediabetes and this should be confirmed with afollow-up test. UREA NITROGEN (BUN) [[id number]] 14 mg/dL N 7-25 mg/dL CREATININE [[id number]] 1.08 mg/dL N 0.70-1 .30 mg/dL EGFR [[id number]] 80 mL/min/1.73m2 N > OR = 6 0 mL/min/1.73m2 BUN/CREATININE RATIO [[id number]] SEE NOTE: (calc) 6-22 (calc) Not Reported: BUN and Creati nine are within reference range. SODIUM [[id number]] 139 mmol/L N 135-146 mm ol/L POTASSIUM [[id number]] 4.2 mmol/L N 3.5-5.3 mmol/L CHLORIDE [[id number]] 102 mmol/L N 98-110 m mol/L CARBON DIOXIDE [[id number]] 28 mmol/L N 20 -32 mmol/L CALCIUM [[id number]] 9.5 mg/dL N 8.6-10.3 mg/dL PROTEIN, TOTAL [[id number]] 7.2 g/dL N 6. 1-8.1 g/dL ALBUMIN [[id number]] 4.4 g/dL N 3.6-5.1 g /dL GLOBULIN [[id number]] 2.8 g/dL (calc) N 1.9-3 .7 g/dL (calc) ALBUMIN/GLOBULIN RATIO [[id number]] 1.6 (calc) N 1.0-2.5 (calc) BILIRUBIN, TOTAL [[id number]] 0.6 mg/dL N 0.2-1.2 mg/dL ALKALINE PHOSPHATASE [[id number]] 53 U/L N 35-144 U/L AST [[id number]] 19 U/L N 10-35 U/L ALT [[id number]] 28 U/L N 9-46 U/L HEMOGLOBIN A1c[496]?Collected: 01/05/2023 12:09 PM?Specimen Received: 01/05/2023 12:09 PM?Source: [facility]:YESFASTING: YES HEMOGLOBIN A1c [[id number]] 7.7 % of total Hgb H 5.7 % of total Hgb For someone without known di abetes, a hemoglobin [id number] of 6.5% or greater indicates that they [...] of diabetes for children. Clinical PDF Report [id number][ClinicalPDFReport1]?Collected: 01/05/2023 12:09 PM?Specimen Received: 01/05/2023 12:09 PM?Source: [facility]ST[facility]:YESFASTING: YES Clinical PDF Report [id number] [ClinicalPDFReport1] ILSA Allergies, adverse reactions, alerts No known allergies and adverse reactions Medications No administered medications reported Vital Signs No vital signs reported Social History No smoking Hx information available
== END 2024-08-22 08:10 | disposition home or self-care (01) ==
LOC: HO.MAMMO 08:09
PROVIDERS: PCP Internal Medicine; Visit Provider Internal Medicine
DX: M81.0 Age-related osteoporosis without current pathological fracture (principal)
CPT/HCPCS: 77080

== ENCOUNTER → 2024-08-22 08:15 | Outpatient (BNV) | payer BC, SELFPAY | PROVIDERS: PCP Internal Medicine; Visit Provider Radiology Diagnostic Radiology | DX: M81.0 Age-related osteoporosis without current pathological fracture (principal) | CPT/HCPCS: 77080 ==

== ENCOUNTER 2024-12-11 15:06 | Outpatient (AMB) | payer BC, SELFPAY ==
--- NOTE | 2024-12-11 15:06 | MHC.PC.OV ---
Vital Signs 12/11/24 15:13 Height 5 ft 8 in Weight 174 lb BMI 26.5 BP 100/64 Blood Pressure Location Rt brachial Position Sitting Respiration 16 Pulse 83 Pulse Source Pulse Oximeter Temp 97.9 F Temp Source Temporal Artery Scan Pulse Oximetry (%) 95 Oxygen Delivery Method Room Air Intake Visit Reasons: Routine Hearing Instrument Specialist Required: No Accompanied by: Self / Same As Patient Allergies Iodinated Contrast Media (IV DYE, IODINE CONTAINING CONTRAST ) Allergy (Severe, Verified 12/11/24 15:06) MOUTH/THROAT ITCHING ENVIROMENTAL Allergy (Intermediate, Uncoded 07/24/24 09:50) HAYFEVER contrast dye Allergy (Unknown, Uncoded 07/24/24 09:50) oral itching CT scan dye Allergy (Unknown, Uncoded 07/24/24 09:50) Unknown seasonal allergies Allergy (Unknown, Uncoded 07/24/24 09:50) Unknown Medication List - Last Reconciled 12/11/24 by Chago Sen MD blood-glucose sensor (BoostSuiteStyle Shakira 3 Plus Sensor device) As directed [Calcium Take 1,200 mg by mouth daily] dextroamphetamine-amphetamine 30 mg ER (Adderall XR) 30 mg PO DAILY dulaglutide (Trulicity) 0.75 mg (0.5 mL) subcut QWEEK empagliflozin (Jardiance) 25 mg PO DAILY enzalutamide (Xtandi) 160 mg PO DAILY gabapentin 300 mg PO DAILY PRN lisinopril 2.5 mg PO DAILY metformin 500 mg PO TID Tobacco use date assessed: 07/23/24 Dental Screening Dental Screen Date: 07/23/24 HPI HPI Comments History of Present Illness Details The patient is a 59-year-old male presenting with chronic management for Type 2 Diabetes Mellitus, hyperlipidemia, and management of treatment effects from previously treated prostate cancer. He reports his current blood glucose levels range from 120s to 150s, noting his A1c was previously measured at 7.1, having increased from 6.9. The patient acknowledges a lack of current symptoms associated with sarcoidosis, diagnosed incidentally during an earlier bone marrow procedure with no subsequent manifestations. He is experiencing side effects from cancer management medications, notably fatigue and occasional gastrointestinal discomfort, attributing some of these to his medication regimen including Xtandi. He has hyperlipidemia, with noted high cholesterol levels, specifically elevated LDL, and is at a 13% calculated risk for a cardiac event due to his diabetes and current renal protective medication regimen with lisinopril. The patient reports side effects during exercise pursuits, specifically experiencing fatigue after physical activity but benefits from activity. He denies any active hypertension, attributing lisinopril use as renal-protective. Medical History: - Type 2 Diabetes Mellitus - Restless Leg Syndrome - Sarcoidosis - Hyperlipidemia - History of Prostate Cancer with radiation therapy Surgical History: - Prostate removal due to cancer in 2013 - Additional targeted treatment for prostate cancer recurrences in subsequent years Medications: - Trulicity for Type 2 Diabetes Mellitus - Jardiance for Type 2 Diabetes Mellitus - Metformin 1000 mg in the morning and 500 mg in the evening for Type 2 Diabetes Mellitus - Lisinopril for renal protective purposes - Gabapentin for Restless Leg Syndrome - Xtandi for prostate cancer management - DEXA scan: No osteoporosis or bone density issues - Regular exercise encouraged with calcium and vitamin D supplementation emphasized - Cardiovascular risk discussion: Calculated 13% risk of cardiac event, plan to initiate statin therapy - Regular senior capital markets specialist visits twice a year - Encouraged podiatric monitoring given diabetes diagnosis; not yet engaged with electromechanical engineer - Future colonoscopy scheduled - No tobacco usage reported [facility] Medical History (Updated 12/11/24 @ 15:37 by Chago Sen MD) Hyperlipidemia Hard of hearing Sarcoidosis Prostate cancer Diabetes mellitus Surgical History (Updated 08/08/24 @ 14:59 by Alyx Joel) History of colonoscopy with polypectomy (~04/29/17) Family History Mother No problems noted. Father No problems noted. Social History Housing: House Patient Tobacco Use Status: Never used Tobacco e-Cigarette/Vaping Use: Never Used service: No Current occupational status: employed Cognitive needs: No Hearing needs: Yes (bilateral hearing aids.) Vision needs: Yes (rx glasses) Questionnaire PHQ-9 Over the last 2 weeks, how often have you been bothered by any of the following problems? 1. Little interest or pleasure in doing things: not at all 2. Feeling down, depressed, or hopeless: not at all 3. Trouble falling or staying asleep, or sleeping too much: not at all 4. Feeling tired or having little energy: not at all 5. Poor appetite or overeating: not at all 6. Feeling bad about yourself - or that you are a failure or have let yourself or your family down: not at all 7. Trouble concentrating on things, such as reading the newspaper or watching television: not at all 8. Moving or speaking so slowly that other people could have noticed. Or the opposite - being so fidgety or restless that you have been moving around a lot more than usual: not at all 9. Thoughts that you would be better off or of hurting yourself in some way: not at all Total score: 0 Depression Screening Interpretation: Negative Depression Screening Done: Yes 14181 - PHQ-9 Billing: Yes Source: Developed by Drs. Hasmukh Byrne, Kemar Williamson and colleagues, with an educational mavis from [employer]. Thrive Questionnaire Date Thrive assessed: 07/23/24 AUDIT C Alcohol Use Questionnaire (AUDIT-C) 1. How often do you have a drink containing alcohol?: Never 3. How often do you have six or more drinks on one occasion?: Never Total Score: 0 Score Reviewed/Action Taken: Yes SUNNY-7 AMB Questionnaire SUNNY-7 Date SUNNY - 7 assessed: 07/23/24 Feeling nervous, anxious, or on edge: 0 = Not at all Not being able to stop or control worryin = Not at all Worrying too much about different things: 0 = Not at all Trouble relaxin = Not at all Being so restless that it is hard to sit still: 0 = Not at all Becoming easily annoyed or irritable: 0 = Not at all Feeling afraid as if something awful might happen: 0 = Not at all Total SUNNY-7 score (0-4 normal; 5-9 mild; 10-14 moderate; 15-21 severe): 0 Source: Developed by Drs. Hasmukh Byrne, Kemar Williamson and colleagues, with an educational mavis from [employer]. SUNNY-7 Assessment Billing SUNNY-7 Assessment Tool: SUNNY-7 Assessment 89542 Review of Systems Const Details: - Cardiovascular: Denies chest pain or palpitations; reports calculated 13% risk of cardiac event - Respiratory: Denies shortness of breath (except with exertion) - Endocrine: Reports blood sugar levels ranging 120s to 150s; prior A1c at 7.1, previously 6.9 - Gastrointestinal: Reports constipation manageable with Maalox - Neurological: Experiencing fatigue, occasional headaches; denies significant joint pain - Musculoskeletal: Reports presence of corns on feet, arthritis-like joint pains Physical exam (Primary Care) Vital Signs: Last Vital Signs Temp 97.9 F 12/11/24 15:13 Pulse 83 12/11/24 15:13 Resp 16 12/11/24 15:13 BP 100/64 12/11/24 15:13 Pulse Ox 95 12/11/24 15:13 Oxygen Delivery Method Room Air 12/11/24 15:13 BMI result Body Mass Index 26.5 Tobacco/Smoking Status: Tobacco use Status Tobacco use date assessed 07/23/24 12/11/24 15:16 Patient Tobacco Use Status Never used Tobacco 12/11/24 15:16 e-Cigarette/Vaping Use Never Used 12/11/24 15:16 Depression Screening Interpretation: Negative Thrive Assessment: Date of Thrive Assessment Date Thrive assessed 07/23/24 12/11/24 15:16 Const Other: General: Alert and oriented, Well nourished, No acute distress. Eye: Pupils are equal, round and reactive to light, Intact accommodation, Extraocular movements are intact, Normal conjunctiva, Vision unchanged. HENT: Normocephalic, Atraumatic, Tympanic membranes are clear, Normal hearing with hearing aids, Oral mucosa is moist, No pharyngeal erythema, Ear canals patent. Respiratory: Lungs CTA bilaterally, No wheeze, Respirations are non-labored. Cardiovascular: Regular rate, Regular rhythm, S1 auscultated, S2 auscultated, No murmur, Good pulses equal in all extremities, Normal peripheral perfusion, No edema. Gastrointestinal: Soft, Non-tender, Non-distended, Normal bowel sounds, No organomegaly, Constipation managed with Maalox. Musculoskeletal: Normal range of motion, Normal strength, No tenderness, No swelling, No deformity, Normal gait, Arthritis feeling with occasional cracked knuckles. Integumentary: Warm, Dry, [place], Intact, Freckles present, No skin lesions. Neurologic: Alert, Oriented, Normal sensory, Normal motor function, No focal defects, Cranial Nerves II-XII are grossly intact, Normal deep tendon reflexes. Psychiatric: Cooperative, Appropriate mood & affect, Normal judgment. Coding Level of Care Code Est Pt Level 4 (19041) Complex EM visit Add On G2211 Diagnoses Diabetes mellitus E11.9 Diabetes mellitus type: type 2 Diabetes mellitus complication status: with neurologic complications Diabetes mellitus complication detail: with polyneuropathy Prostate cancer C61 Hyperlipidemia, unspecified hyperlipidemia type E78.5 Hyperlipidemia type: unspecified Additional Codes SUNNY-7 Assessment Billing - SUNNY-7 Assessment Tool: SUNNY-7 Assessment 11477 ([id number]) PHQ-9 - 09303 - PHQ-9 Billing: Yes ([id number]) Assessment & Plan Assessment & Plan (1) Diabetes mellitus: Comment: - A1c Elvated to 7.1, will continue same home regiment and evaluate Code(s): E11.9 - Type 2 diabetes mellitus without complications Category: Medical Qualifiers: Diabetes mellitus type: type 2 Diabetes mellitus complication status: with neurologic complications Diabetes mellitus complication detail: with polyneuropathy Plan: - Maintain current regimen of Trulicity, Jardiance, and Metformin. - Schedule A1c test to monitor glycemic control. - Continue self-monitoring of blood glucose levels at home. (2) Prostate cancer: Comment: - Maintain regular follow-up for any post-treatment concerns and ensure monitoring for radiation proctitis symptoms. Code(s): C61 - Malignant neoplasm of prostate Category: Medical Plan: - Continue Enzalutuamide with end date in march (3) Hyperlipidemia: Comment: - Commence statin therapy specifically by prescribing a moderate dose of statin to manage elevated cholesterol levels. Recommend evening dosing. Code(s): E78.5 - Hyperlipidemia, unspecified Category: Medical Qualifiers: Hyperlipidemia type: unspecified Qualified Code(s): E78.5 - Hyperlipidemia, unspecified Plan: - Start Atorvastatin 20mg Daily (ASCVD 14%) Plan 5. Cardiac Risk Management - Initiate statin therapy due to the identified risk of a cardiac event. - Encourage continued healthy lifestyle adjustments including regular exercise. 3. Restless Leg Syndrome - Continue gabapentin as managed previously with monitoring for efficacy. I discussed the patient's condition concerning Type 2 Diabetes Mellitus management, identifying satisfactory blood glucose levels and the need for ongoing monitoring through A1c tests. Statin was recommended for hyperlipidemia management due to increased cholesterol levels and risk of cardiac events. Regular senior capital markets specialist visits retain priority alongside initiating podiatric care if needed. The need to continue Gabapentin for Restless Leg Syndrome was reemphasized while monitoring ongoing treatment for prior prostate cancer to avoid potential complications such as radiation proctitis. No new prescriptions or interventions for sarcoidosis were necessary due to the absence of symptoms. Follow-up plans include routine blood work, confirmatory A1c evaluation, and adjustment of care based on therapy outcomes. Orders: Orders Hemoglobin A1c Today E11.9 - Type 2 diabetes mellitus without complications Medications: New atorvastatin (Lipitor) 20 mg PO BEDTIME 90 tabs 0RF 90 days E78.5 - Hyperlipidemia, unspecified Changed From metformin 1000 mg in the morning and 500 mg at dinner 500 mg PO TID To metformin 500 mg PO TID 270 tabs 0RF 90 days Patient Instructions: - Continue current diabetes medications and monitor blood sugar levels. - Start prescribed statin in the evening for cholesterol management. - Maintain regular physical activity; consult if you feel excessive fatigue persists. - Schedule senior capital markets specialist visits every six months and see a electromechanical engineer if needed for foot care. - Expect follow-up for upcoming blood work and further colonoscopy.
[2024-12-11 15:13] VITALS: BP 100/64; PULSE 83; RESP 16; TEMP 36.6; O2SAT 95; BMI 26.5
--- OUTSIDE RECORDS SUMMARY | 2024-12-11 16:01 | XMS_ITS | Continuity of Care Document ---
Author Organization [facility] Address [address] [facility] [address] [place] [id number] Insurance Providers Payer Plan Claims Address Claims Phone Policy Number Group Number Relation Employer Guarantor Name Guarantor Guarantor Address Guarantor Phone Blue Cross Blue Plans [id number] Self Hernán Madsen 1965 [address] [place] [address] Blue Cross HMO [id number] Self Hernán Madsen 1965 [address] [place] [address] Problems Condition ICD9 code ICD10 code SNOMED code Start Date End Date S tatus Encounter for screening for other metabolic disorders Z13.228 Results Test Value / Unit Interpretation Reference Ran LIPID PANEL, STANDARD[[id number]] Collected: 01/05/2023 12:09 PM Specimen Received: 01/05/2023 12:09 PM Source: [facility]FASTING:YESFASTING: YES CHOLESTEROL, TOTAL [[id number]] 184 mg/dL N 200 mg/dL HDL CHOLESTEROL [[id number]] 41 mg/dL N > OR = 40 mg/dL TRIGLYCERIDES [[id number]] 137 mg/dL N 150 mg/dL LDL-CHOLESTEROL [[id number]] 118 mg/dL (calc) H Reference range: or = 2 CHD risk factors. LDL-C is now calculated using the Radha calculation, which is a validated novel method providing better accuracy than the Friedewald equation in the estimation of LDL-C. Tremayne MA et al. JOY. 2013;310(19): 0184-7864 (http://education.[employer].Wordlock/faq/ADU288) CHOL/HDLC RATIO [[id number]] 4.5 (calc) N 5 .0 (calc) NON HDL CHOLESTEROL [[id number]] 143 mg/dL (calc) H 130 mg/dL (calc) For patients with diabetes p elise 1 major ASCVD risk factor, treating to a non-HDL-C goal of 100 mg/dL (LDL-C of <70 mg/dL) is considered a therapeutic option. ALBUMIN, RANDOM URINE W/CREA CAN[6517] Collected: 01/05/2023 12:09 PM Specimen Received: 01/05/2023 12:09 PM Source: [facility]FASTING:YESFASTING: YES CREATININE, RANDOM URINE [[id number]] 180 mg/dL N 20-320 mg/dL ALBUMIN, URINE [[id number]] 1.7 mg/dL N Se e Note: mg/dL Reference Range:Reference Ra ngeNot established ALBUMIN/CREATININE RATIO, RANDOM URINE [[id number]] 9 mcg/mg creat N 30 mcg/mg creat The ADA defines abnormalitie s in albuminexcretion as follows: Albuminuria Category Result (mcg/mg creatinine) Normal to Mildly increased OR = 300 The ADA recommends that at least two of threespecimens collected within a 3-6 month period beabnormal before considering a patient to bewithin a diagnostic category. COMPREHENSIVE METABOLIC PANE L[[id number]] Collected: 01/05/2023 12:09 PM Specimen Received: 01/05/2023 12:09 PM Source: [facility]FASTING:YESFASTING: YES GLUCOSE [[id number]] 155 mg/dL H 65-99 mg/ dL Fasting reference interval F or someone without known diabetes, a glucosevalue >125 mg/dL indicates that they may havediabetes and this should be confirmed with afollow-up test. UREA NITROGEN (BUN) [[id number]] 14 mg/dL N 7-25 mg/dL CREATININE [[id number]] 1.08 mg/dL N 0.70-1 .30 mg/dL EGFR [[id number]] 80 mL/min/1.73m2 N > OR = 6 0 mL/min/1.73m2 BUN/CREATININE RATIO [[id number]] SEE NOTE: (calc) 6-22 (calc) Not Reported: BUN and Creati nine are within reference range. SODIUM [[id number]] 139 mmol/L N 135-146 mm ol/L POTASSIUM [[id number]] 4.2 mmol/L N 3.5-5.3 mmol/L CHLORIDE [[id number]] 102 mmol/L N 98-110 m mol/L CARBON DIOXIDE [[id number]] 28 mmol/L N 20 -32 mmol/L CALCIUM [[id number]] 9.5 mg/dL N 8.6-10.3 mg/dL PROTEIN, TOTAL [[id number]] 7.2 g/dL N 6. 1-8.1 g/dL ALBUMIN [[id number]] 4.4 g/dL N 3.6-5.1 g /dL GLOBULIN [[id number]] 2.8 g/dL (calc) N 1.9-3 .7 g/dL (calc) ALBUMIN/GLOBULIN RATIO [[id number]] 1.6 (calc) N 1.0-2.5 (calc) BILIRUBIN, TOTAL [[id number]] 0.6 mg/dL N 0.2-1.2 mg/dL ALKALINE PHOSPHATASE [[id number]] 53 U/L N 35-144 U/L AST [[id number]] 19 U/L N 10-35 U/L ALT [[id number]] 28 U/L N 9-46 U/L HEMOGLOBIN A1c[496] Collected: 01/05/2023 12:09 PM Specimen Received: 01/05/2023 12:09 PM Source: [facility]FASTING:YESFASTING: YES HEMOGLOBIN A1c [[id number]] 7.7 % of total Hgb H 5.7 % of total Hgb For someone without known di abetes, a hemoglobin O8ctqhhj of 6.5% or greater indicates that they [...] of diabetes for children. Clinical PDF Report [id number]-1[ClinicalPDFReport1] Collected: 01/05/2023 12:09 PM Specimen Received: 01/05/2023 12:09 PM Source: [facility]FASTING:YESFASTING: YES Clinical PDF Report [id number] [ClinicalPDFReport1] ILSA Allergies, adverse reactions, alerts No known allergies and adverse reactions Medications No administered medications reported Vital Signs No vital signs reported Social History No smoking Hx information available
--- OUTSIDE RECORDS SUMMARY | 2024-12-11 16:01 | XMS_ITS | Continuity of Care Document ---
Author Organization [facility] Address [address] [facility] [address] [place] [address] Insurance Providers Payer Plan Claims Address Claims Phone Policy Number Group Number Relation Employer Guarantor Name Guarantor Guarantor Address Guarantor Phone Blue Cross Blue Plans [id number] Self Hernán Madsen 1965 [address] [place] [address] Blue Cross HMO [id number] Self Hernán Madsen 1965 [address] [place] [address] Problems Condition ICD9 code ICD10 code SNOMED code Start Date End Date S tatus Encounter for screening for other metabolic disorders Z13.228 Results Test Value / Unit Interpretation Reference Ran LIPID PANEL, STANDARD[[id number]] Collected: 01/05/2023 12:09 PM Specimen Received: 01/05/2023 12:09 PM Source: [facility]FASTING:YESFASTING: YES CHOLESTEROL, TOTAL [[id number]] 184 mg/dL N 200 mg/dL HDL CHOLESTEROL [[id number]] 41 mg/dL N > OR = 40 mg/dL TRIGLYCERIDES [[id number]] 137 mg/dL N 150 mg/dL LDL-CHOLESTEROL [[id number]] 118 mg/dL (calc) H Reference range: or = 2 CHD risk factors. LDL-C is now calculated using the Radha calculation, which is a validated novel method providing better accuracy than the Friedewald equation in the estimation of LDL-C. Tremayne MA et al. JOY. 2013;310(19): 2550-2431 (http://education.[employer].Shoutfit/faq/PAC793) CHOL/HDLC RATIO [[id number]] 4.5 (calc) N 5 .0 (calc) NON HDL CHOLESTEROL [[id number]] 143 mg/dL (calc) H 130 mg/dL (calc) For patients with diabetes p elise 1 major ASCVD risk factor, treating to a non-HDL-C goal of 100 mg/dL (LDL-C of <70 mg/dL) is considered a therapeutic option. ALBUMIN, RANDOM URINE W/CREA CAN[6517] Collected: 01/05/2023 12:09 PM Specimen Received: 01/05/2023 12:09 PM Source: [facility]FASTING:YESFASTING: YES CREATININE, RANDOM URINE [[id number]] 180 mg/dL N 20-320 mg/dL ALBUMIN, URINE [[id number]] 1.7 mg/dL N Se e Note: mg/dL Reference Range:Reference Ra ngeNot established ALBUMIN/CREATININE RATIO, RANDOM URINE [[id number]] 9 mcg/mg creat N 30 mcg/mg creat The ADA defines abnormalitie s in albuminexcretion as follows: Albuminuria Category Result (mcg/mg creatinine) Normal to Mildly increased OR = 300 The ADA recommends that at least two of threespecimens collected within a 3-6 month period beabnormal before considering a patient to bewithin a diagnostic category. COMPREHENSIVE METABOLIC PANE L[[id number]] Collected: 01/05/2023 12:09 PM Specimen Received: 01/05/2023 12:09 PM Source: [facility]FASTING:YESFASTING: YES GLUCOSE [[id number]] 155 mg/dL H 65-99 mg/ dL Fasting reference interval F or someone without known diabetes, a glucosevalue >125 mg/dL indicates that they may havediabetes and this should be confirmed with afollow-up test. UREA NITROGEN (BUN) [[id number]] 14 mg/dL N 7-25 mg/dL CREATININE [[id number]] 1.08 mg/dL N 0.70-1 .30 mg/dL EGFR [[id number]] 80 mL/min/1.73m2 N > OR = 6 0 mL/min/1.73m2 BUN/CREATININE RATIO [[id number]] SEE NOTE: (calc) 6-22 (calc) Not Reported: BUN and Creati nine are within reference range. SODIUM [[id number]] 139 mmol/L N 135-146 mm ol/L POTASSIUM [[id number]] 4.2 mmol/L N 3.5-5.3 mmol/L CHLORIDE [[id number]] 102 mmol/L N 98-110 m mol/L CARBON DIOXIDE [[id number]] 28 mmol/L N 20 -32 mmol/L CALCIUM [[id number]] 9.5 mg/dL N 8.6-10.3 mg/dL PROTEIN, TOTAL [[id number]] 7.2 g/dL N 6. 1-8.1 g/dL ALBUMIN [[id number]] 4.4 g/dL N 3.6-5.1 g /dL GLOBULIN [[id number]] 2.8 g/dL (calc) N 1.9-3 .7 g/dL (calc) ALBUMIN/GLOBULIN RATIO [[id number]] 1.6 (calc) N 1.0-2.5 (calc) BILIRUBIN, TOTAL [[id number]] 0.6 mg/dL N 0.2-1.2 mg/dL ALKALINE PHOSPHATASE [[id number]] 53 U/L N 35-144 U/L AST [[id number]] 19 U/L N 10-35 U/L ALT [[id number]] 28 U/L N 9-46 U/L HEMOGLOBIN A1c[496] Collected: 01/05/2023 12:09 PM Specimen Received: 01/05/2023 12:09 PM Source: [facility]FASTING:YESFASTING: YES HEMOGLOBIN A1c [[id number]] 7.7 % of total Hgb H 5.7 % of total Hgb For someone without known di abetes, a hemoglobin W3dgzxch of 6.5% or greater indicates that they [...] of diabetes for children. Clinical PDF Report [id number] F-[id number][ClinicalPDFReport1] Collected: 01/05/2023 12:09 PM Specimen Received: 01/05/2023 12:09 PM Source: [facility]FASTING:YESFASTING: YES Clinical PDF Report [id number] [ClinicalPDFReport1] ILSA Allergies, adverse reactions, alerts No known allergies and adverse reactions Medications No administered medications reported Vital Signs No vital signs reported Social History No smoking Hx information available
--- OUTSIDE RECORDS SUMMARY | 2024-12-11 16:01 | XMS_ITS | Clinical Summary ---
Author Organization [facility] Address [address] [facility] [address] [place] [address] Phone Care Team Providers Care Pen Maker Name Role Phone Mazin Esquivel MD, AURELIA Unavailable [phone] Garcia Ochoa MD Unavailable [phone] Jhon Yee MD Primary Care Provid er Myranda Dumont RN Unavailable [email or web address] Allergies Active Allergy Reactions Criticality Noted Date Comments Iodinated Contrast Media Itching 10/12/2023 Ragweed 02/27/2023 Other reaction(s): hayfever Medications dextroamphetam ine-amphetamin e (ADDERALL XR) 30 MG 24 hr capsule Take 30 mg by mouth every morning. Active lisinopril (PRINIVIL,ZEST RIL) 2.5 MG tablet 2.5 mg daily. Active metFORMIN (GLUCOPHAGE) 500 MG tablet Take 500-1,000 mg by mouth 2 (two) times a day with meals. 1000mg in the morning and 500mg in the afternoon. Active JARDIANCE 10 mg tablet Take 25 mg by mouth every morning. 10/05/19 24 Active calcium citrate-vitami n D3 315 mg-6.25 mcg (250 unit) per tablet Take 1 tablet by mouth daily. Active XTANDI 40 mg capsule TAKE FOUR CAPSULES BY MOUTH EVERY DAY 120 capsule 2 10/19/19 25 Active gabapentin (NEURONTIN) 300 MG capsule TAKE 1 CAPSULE BY MOUTH NIGHTLY AT BEDTIME. 30 capsule 3 12/06/19 25 Active glipiZIDE (GLUCOTROL XL) 5 MG 24 hr tablet Take 5 mg by mouth daily. 02/12/20 23 025 Discontinued(No longer taking) gabapentin (NEURONTIN) 300 MG capsule Take 1 capsule (300 mg total) by mouth nightly at bedtime. 30 capsule 3 11/23/19 24 025 Discontinued Active Problems Problem Noted Date Diagnosed Date Attention deficit disorder of adult with hyperac tivity 10/12/2023 History of renal calculi 10/12/2023 Malignant neoplasm of prostate 06/10/2023 Encounters Date Type Department Care Team Description 12/05/2024 Refill [facility], [address] [place] [address] Barb Gibbons NP Medication Refill 11/29/2024 Orders Only [facility], [facility] [address] [facility] [place] [address] Deysi Diaz PA-C Prostate cancer (Primary Dx) 11/23/2024 2:00 PM EDT Office Visit [facility], [facility] [address] [facility] [place] [address] Deysi Diaz PA-C Prostate cancer (Primary Dx) 10/18/2024 Refill [facility], [facility] [address] [facility] [address] [place] [address] Deysi Diaz PA-C Medication Refill from Last 3 Months Family History Medical History Relation Comments Prostate cancer Brother 1 Thyroid cancer Brother 2 Breast cancer Mother Breast cancer Paternal Grandmother Relation Status Comments Brother 1 Brother 2 Alive Mother Paternal Grandmother Social History Tobacco Use Types Packs/Day Years Used Date Smoking Tobacco: Never Assessed Child or Family Care Answer Date Record ed Do you have problems with on e of the following making it difficult for you to work, study, or receive health care? No 02/22/2023 Education Answer Date Recorded Are you interested in help w ith more adult education (for example, completing high school, GED, job training, learning the Danish language, technical skills, or developing parenting skills)? No 02/22/2023 Are you concerned about learning? Not on file 02/22/2023 No 02/22/2023 Yes 02/22/2023 Food Answer Date Recorded Within the past 6 months we worried whether our food would run out before we got money to buy more. Never True 02/22/2023 Within the past 6 months the food we bought just didn't last and we didn't have enough money to get more. Never True Residential Stability Answer Date Recor ded What is your housing situation today? I have marcell nathan 02/22/2023 How many times have you move d in the past 12 months? Zero (I did not move) 02/22/2023 Paying for Meds Answer Date Recorded Do you have trouble paying for medicines? No 02/22/2023 Paying Utility Bills Answer Date Record ed Do you have trouble paying your heating or elect ricity bill? No 02/22/2023 Transportation Answer Date Recorded Has the lack of transportati on kept you from medical appointments or from getting medications? No 02/22/2023 Digital Access Answer Date Recorded No 02/08/2023 No 02/08/2023 Reliable internet access at home? Not on file 02/08/2023 Device with a working camera? Not on file Intimate Partner Violence Answer Date R ecorded Are you denied basic needs s uch as food, clothing, or medical care? No 08/31/2024 In the past 12 months have y ou been in a relationship with a person who hurts, threatens, or tries to control you? No 08/31/2024 Are you denied basic needs s uch as food, clothing, or medical care? No 08/31/2024 In the past 12 months have y ou been in a relationship with a person who hurts, threatens, or tries to control you? No 08/31/2024 Sex and Gender Information Value Date Recorded Sex Assigned at Not on file Legal Sex Male 2:50 PM EDT Gender Identity Not on file Sexual Orientation Not on file Last Filed Vital Signs Vital Sign Reading Time Taken Comments Blood Pressure 105/64 11/23/2024 1:51 PM EDT Pulse 81 11/23/2024 1:51 PM EDT Temperature 36.5 C (97.7 F) 11/23/2024 1:51 PM EDT Respiratory Rate 18 11/23/2024 1:51 PM EDT Oxygen Saturation 97% 11/23/2024 1:51 PM EDT Inhaled Oxygen Concentration - - Weight 78 kg (171 lb 15.3 oz) 11/23/2024 1:51 PM EDT Height 173 cm (5' 8.11 ) 11/23/2024 1:51 PM EDT Body Mass Index 26.06 11/23/2024 1:51 PM EDT Plan of Treatment Upcoming Encounters Date Type Department Care Team (Late st Contact Info) Description 03/22/2025 1:30 PM EST Blood Draw Laboratory Services, [address] [place] [address] Garcia Ochoa MD [address] [place] [phone] [email or web address] 03/22/2025 2:30 PM EST Office Visit [facility], [address], [address] [place] [address] Deysi Diaz PA-C [address] [place] [phone] [email or web address] Garcia Ochoa MD [address] [place] [phone] [email or web address] Health Maintenance Due Date Last Done Comments LIPID PANEL 1965 SMOKING Hx and SMOKELESS TOBACCO SCREENING 1978 HEPATITIS C SCREENING 11/22/1983 HIV ONE-TIME SCREENING (18-65 YEARS) 11/22/1983 PNEUMOCOCCAL VACCINES (50+ years) (1 of 2 - PCV) 1984 ZOSTER VACCINES (1 of 2) 1984 COLOGUARD 2010 COLONOSCOPY 2010 COLORECTAL CANCER SCREENING 2010 FIT TEST 2010 FOBT 2010 SIGMOIDOSCOPY 2010 VIRTUAL COLONOSCOPY 2010 Adult Td,Tdap Booster 04/19/2021 04/19/2011 COVID-19 VACCINE ( season) 2023 04/17/2023, 03/02/2021, 05/25/2020, Additional history exists DEPRESSION SCREENING 04/26/2025 04/26/2024 CREATININE LEVEL 11/23/2025 11/23/2024, , 06/08/2024, Additional history exists POTASSIUM LEVEL 11/23/2025 11/23/2024, 08/16, 06/08/2024, Additional history exists SCREENING FOR DIABETES 09/01/2027 08/31/2024, 2023 HEPATITIS A VACCINES Aged Out No long er eligible based on patient's age to complete this topic HIB VACCINES Aged Out No longer eligi ble based on patient's age to complete this topic MENINGOCOCCAL VACCINES (ACWY) Aged Out No longer eligible based on patient's age to complete this topic MENINGOCOCCAL VACCINES (B) Aged Out N o longer eligible based on patient's age to complete this topic Medical Devices Not on file Procedures Procedure Name Priority Date/Time Associated Diagnosis Comments TESTOSTERONE, TOTAL Routine 11/23/2024 1 2:39 PM EDT Prostate cancer PSA DIAGNOSTIC (MONITORING) Routine 11/23/2024 12:39 PM EDT Prostate cancer COMPREHENSIVE METABOLIC PANEL Routine 11/23/2024 12:39 PM EDT Prostate cancer HC BLOOD COUNT COMPLETE AUTO&AUTO DIFRNTL WBC Routine 11/23/2024 12:39 PM EDT Prostate cancer from Last 3 Months Results * (ABNORMAL) Comprehensive metabolic panel (11/23/2024 12:39 PM EDT) SODIUM 143 136 - 145 mmol/L [facility] LIC# [id number] POTASSIUM 4.5 3.4 - 5.1 mmol/L [facility] LIC# [id number] CHLORIDE 103 98 - 107 mmol/L [facility] LIC# [id number] CO2 28 22 - 31 mmol/L [facility] LIC# [id number] BUN 13 6 - 23 mg/dL [facility] LIC# [id number] CREATININE 0.91 0.50 - 1.20 mg/dL [facility] LIC# [id number] GLUCOSE 133(H) 70 - 100 mg/dL [facility] LIC# [id number] ALBUMIN 4.2 3.5 - 5.2 g/dL [facility] LIC# [id number] TOTAL PROTEIN 6.5 6.4 - 8.3 g/dL [facility] LIC# [id number] CALCIUM 10.4 8.8 - 10.7 mg/dL [facility] LIC# [id number] ALKALINE PHOSPHATASE 72 40 - 129 U/L [facility] LIC# [id number] TOTAL BILIRUBIN 0.3 0.2 - 1.2 mg/dL [facility] LIC# [id number] AST 13 <41 U/L [facility] LIC# [id number] ALT 14 <42 U/L [facility] LIC# [id number] GLOBULIN 2.3 2.3 - 4.2 g/dL [facility] LIC# [id number] EGFR 97 >59 mL/min/1.7 3m2 [facility] LIC# [id number] Comment:Estimated glomerular filtration rate calculated using the CKD-EPI refit equation. ANION GAP 12 7 - 17 mmol/L [facility] LIC# [id number] Blood 11/23/2024 12:3 9 PM EDT 11/23/2024 12:55 PM EDT us Garcia Ochoa MD LAB BLOOD ORDERABLES Fi nal Result [facility] LIC# [id number] [address] [place] [address] * PSA diagnostic (monitoring) (11/23/2024 12:39 PM EDT) Pathologist [facility] PSA Monitoring <0.02 0.00 - 4.00 ng/mL [facility] LIC# [id number] Blood 11/23/2024 12:3 9 PM EDT 11/23/2024 12:55 PM EDT us Garcia Ochoa MD LAB BLOOD ORDERABLES Fi nal Result Performing Organization Address [facility] Co de Phone Number [facility] LIC# [id number] [address] [place] [address] * CBC and differential (11/23/2024 12:39 PM EDT) Pathologist [facility] WBC 4.84 4.00 - 10.00 K/uL [facility] LIC# [id number] RBC 4.93 4.50 - 6.40 M/uL [facility] LIC# [id number] HGB 15.5 13.5 - 18.0 g/dL [facility] LIC# [id number] HCT 46.9 40.0 - 54.0 % [facility] LIC# [id number] PLT 223 150 - 450 K/uL [facility] LIC# [id number] MCV 95.1 80.0 - 100.0 fL [facility] LIC# [id number] MCH 31.4 27.0 - 32.0 pg [facility] LIC# [id number] MCHC 33.0 32.0 - 36.0 g/dL [facility] LIC# [id number] RDW 11.7 11.5 - 14.5 % [facility] LIC# [id number] MPV 9.6 8.4 - 12.0 fL [facility] LIC# [id number] NRBC 0.00 0 /100 WBCs [facility] LIC# [id number] ABSOLUTE NRBC 0.00 0 K/uL [facility] LIC# [id number] DIFF METHOD Auto [facility] LIC# [id number] NEUTS 61.4 48.0 - 76.0 % [facility] LIC# [id number] LYMPHS 26.4 18.0 - 41.0 % [facility] LIC# [id number] MONOS 9.5 4.0 - 11.0 % [facility] LIC# [id number] EOS 1.7 0.0 - 5.0 % [facility] LIC# [id number] BASOS 0.6 0.0 - 1.5 % [facility] LIC# [id number] % IMMATURE GRANS 0.4 0.0 - 1.0 % [facility] LIC# [id number] ABSOLUTE NEUTS 2.97 1.92 - 7.60 K/uL [facility] LIC# [id number] ABSOLUTE LYMPHS 1.28 0.72 - 4.10 K/uL [facility] LIC# [id number] ABSOLUTE MONOS 0.46 0.16 - 1.10 K/uL [facility] LIC# [id number] ABSOLUTE EOS 0.08 0.00 - 0.50 K/uL [facility] LIC# [id number] ABSOLUTE BASOS 0.03 0.00 - 0.15 K/uL [facility] LIC# [id number] ABS IMMATURE GRANS 0.02 0.00 - 0.10 K/uL [facility] LIC# [id number] Blood 11/23/2024 12:3 9 PM EDT 11/23/2024 12:55 PM EDT us Garcia Ochoa MD LAB BLOOD ORDERABLES Fi nal Result [facility] LIC# [id number] [address] [place] [address] * (ABNORMAL) Testosterone, total (11/23/2024 12:39 PM EDT) TESTOSTERONE 11(L) 193 - 740 ng/dL [facility] LIC# [id number] Blood 11/23/2024 12:3 9 PM EDT 11/23/2024 12:55 PM EDT us Garcia Ochoa MD LAB BLOOD ORDERABLES Fi nal Result [facility] LIC# [id number] [address] [place] [address] from Last [address] [place] [place] [address] Care Teams Pen Maker Relationship Specialty Start Date End Date Jhon Yee MD [address] [place] [address] PCP - General Internal Medicine 08/08/24 Mazin Esquivel MD, AURELIA [address] [place] [address], [facility] [address] [address] [email or web address] Radiation Oncology 02/08/23 Garcia Ochoa MD [address] [place] [phone] [email or web address] 02/08/23 Myranda Dumont RN [address] [place] [id number] [email or web address] Infusion Nurse 08/31/24 Additional Source Comments The information contained in this document represents components of the legal health record. It is not the complete legal health record.[facility]
--- OUTSIDE RECORDS SUMMARY | 2024-12-11 16:01 | XMS_ITS ---
Author Organization [facility] Address [address] [facility] [address] [place] [address] Phone Care Team Providers Care Biomedical Engineering Supervisor Name Role Phone Mazin Esquivel MD, AURELIA Unavailable [phone] Garcia Ochoa MD Unavailable [phone] Jhon Yee MD Primary Care Provid er Myranda Dumont RN Unavailable [email or web address] Problems Problem Noted Date Diagnosed Date Attention deficit disorder of adult with hyperac tivity 10/12/2023 History of renal calculi 10/12/2023 Malignant neoplasm of prostate 06/10/2023 Current Treatment and Therapy Plans LEUPROLIDE ACETATE 6 MONTH (LUPRON DEPOT 6 MONTH)* Plan Start Date:09/09/2023 Plan Provider:Garcia Ochoa MD Linked Problems Malignant neoplasm of prosta te Treatment Medications leuprolide acetate (6 month) (LUPRON DEPOT 6 MONTH) Past Treatment and Therapy Plans No past plan information found. Radiation Treatments * Course C1 05/24/2023 - 07/01/2023 Treatment Period Energy Fraction Dose Fractions Total Dose Plans Planned [id number]^VMAT Prostate RT Intent Revision 0 05/24/2023 - 07/01/2023 220 cGy 28 / 28 6,160 cGy Reference Points Delivered A1_LN 6160 05/24/2023 - 07/01/2023 6,160 cGy A1_Pelvis 05/24/2023 - 07/01/2023 5,040 cGy A_PelvisLN 05/24/2023 - 07/01/2023 6,160 cGy
== END 2024-12-11 16:38 | disposition home or self-care (01) ==
LOC: HO.HMCHD 15:06
PROVIDERS: PCP Student in an Organized Health Care Education/Training Program; Visit Provider Student in an Organized Health Care Education/Training Program
DX: E11.9 Type 2 diabetes mellitus without complications (principal); C61 Malignant neoplasm of prostate; E78.5 Hyperlipidemia, unspecified

== ENCOUNTER 2024-12-11 15:06 | Outpatient (REF) | payer BC, SELFPAY ==
[2024-12-11 17:45] LABS: Appearance Urine Clear; Glucose Urine UA >=1000 mg/dL (Negative); PH 5.5 (5.0-9.0); Specific Gravity - Urine >= 1.030 (1.005-1.025); UMIC TRIGGER UA YES
== END 2024-12-11 15:07 | disposition home or self-care (01) ==
LOC: HO.LAB 15:06
PROVIDERS: PCP Internal Medicine; Visit Provider Student in an Organized Health Care Education/Training Program
DX: E11.9 Type 2 diabetes mellitus without complications (principal); E78.5 Hyperlipidemia, unspecified; C61 Malignant neoplasm of prostate
CPT/HCPCS: 36415; 81001; 83036; 96127

== ENCOUNTER 2025-01-01 07:52 | Outpatient (AMB) | payer BC, SELFPAY ==
--- OUTSIDE RECORDS SUMMARY | 2025-01-01 07:55 | XMS_ITS ---
Author Organization [facility] Address [address] [facility] [address] [place] [address] Phone Care Team Providers Care Gardener Name Role Phone Mazin Esquivel MD, AURELIA Unavailable [phone] Garcia Ochoa MD Unavailable [phone] Jhon Yee MD Primary Care Provid er Myranda Dumont RN Unavailable [email or web address] Active Problems Problem Noted Date Diagnosed Date [...]
--- OUTSIDE RECORDS SUMMARY | 2025-01-01 07:55 | XMS_ITS | Clinical Summary ---
Author Organization [facility] Address [address] [facility] [address] [place] [phone] Phone Care Team Providers Care Funeral Director Name Role Phone Mazin Esquivel MD, AURELIA Unavailable [phone] Garcia Ochoa MD Unavailable [phone] Jhon Yee MD Primary Care Provid er Myranda Dumont RN Unavailable [email or web address] Allergies Active Allergy Reactions Criticality Noted Date [...] Take 25 mg by mouth every morning. 4 Active calcium citrate-vitami n D3 315 mg-6.25 mcg (250 unit) per tablet Take 1 tablet by mouth daily. Active XTANDI 40 mg capsule TAKE FOUR CAPSULES BY MOUTH EVERY DAY 120 capsule 2 5 Active gabapentin (NEURONTIN) 300 MG capsule TAKE 1 CAPSULE BY MOUTH NIGHTLY AT BEDTIME. 30 capsule 3 5 Active gabapentin (NEURONTIN) 300 MG capsule Take 1 capsule (300 mg total) by mouth nightly at bedtime. 30 capsule 3 4 025 Discontinued Active Problems Problem Noted Date Diagnosed Date Attention deficit disorder of adult with hyperac tivity 10/12/2023 History of renal calculi 10/12/2023 Malignant neoplasm of prostate 06/10/2023 Encounters Date Type Department Care Team Description 12/05/2024 Refill [facility], [facility] [address] [facility] [place] [address] Barb Gibbons NP Medication Refill 11/29/2024 Orders Only [facility], [facility] [address] [facility] [place] [address] Deysi Diaz PA-C Prostate cancer (Primary Dx) 11/23/2024 2:00 PM EDT Office Visit [facility], [facility] [address] [facility] [place] [address] Deysi Diaz PA-C Prostate cancer (Primary Dx) 10/18/2024 Refill [facility], [facility] [address] [place] [address] Deysi Diaz PA-C Medication Refill from Last [...] high school, GED, job training, learning the [place] language, technical skills, or developing parenting skills)? [...] your housing situation today? I have marcell sing 02/22/2023 How many times have you move [...] 1:30 PM EST [facility], [address] [place] [address] Garcia Ochoa MD [address] [place] [phone] [email or web address] 03/22/2025 2:30 PM EST Office Visit [facility], [address] [place] [address] Deysi Diaz PA-C [address] [place] [phone] [email or web address] Garcia Ochoa MD [address] [place] [phone] [email or web address] Health Maintenance Due Date Last Done Comments [...] COLONOSCOPY 2010 Adult Td,Tdap Booster 04/19/2021 04/19/2011 INFLUENZA VACCINE (#1) 2024 , 12/29/2020, 01/02/2020, Additional history exists COVID-19 VACCINE ( season) 2024 04/17/2023, 03/02/2021, 05/25/2020, Additional history exists DEPRESSION [...] EDT) SODIUM 143 136 - 145 mmol/L [facility] LIC# [id number] POTASSIUM 4.5 3.4 - 5.1 mmol/L [facility] LIC# [id number] CHLORIDE 103 98 - 107 mmol/L [facility] LIC# [id number] CO2 28 22 - 31 mmol/L [facility] LIC# [id number] BUN 13 6 - 23 mg/dL [facility] LIC# [id number] CREATININE 0.91 0.50 - 1.20 mg/dL [facility] LIC# [id number] GLUCOSE 133(H) 70 - 100 mg/dL [facility] LIC# [id number] ALBUMIN 4.2 3.5 - 5.2 g/dL [facility] LIC# [id number] TOTAL PROTEIN 6.5 6.4 - 8.3 g/dL [facility] LIC# [id number] CALCIUM 10.4 8.8 - 10.7 mg/dL [facility] LIC# [id number] ALKALINE PHOSPHATASE 72 40 - 129 U/L [facility] LIC# [id number] TOTAL BILIRUBIN 0.3 0.2 - 1.2 mg/dL [facility] LIC# [id number] AST 13 <41 U/L [facility] LIC# [id number] ALT 14 <42 U/L [facility] LIC# [id number] GLOBULIN 2.3 2.3 - 4.2 g/dL [facility] LIC# [id number] EGFR 97 >59 mL/min/1.7 3m2 [facility] LIC# [id number] Comment:Estimated glomerular filtration rate calculated using the CKD-EPI refit equation. ANION GAP 12 7 - 17 mmol/L [facility] LIC# [id number] Blood 11/23/2024 12:3 9 PM EDT 11/23/2024 12:55 PM EDT us Garcia Ochoa MD LAB BLOOD ORDERABLES Fi nal Result [facility] LIC# [id number] [address] [place] [address] * PSA diagnostic (monitoring) (11/23/2024 12:39 PM EDT) PSA Monitoring <0.02 0.00 - 4.00 ng/mL [facility] LIC# [id number] Blood 11/23/2024 12:3 9 PM EDT 11/23/2024 12:55 PM EDT us Garcia Ochoa MD LAB BLOOD ORDERABLES Fi nal Result Performing Organization Address City/[facility] Co de Phone Number [facility] LIC# [id number] [address] [place] [address] * CBC and differential (11/23/2024 12:39 PM EDT) Pathologist [facility] WBC 4.84 4.00 - 10.00 K/uL [facility] LIC# [id number] RBC 4.93 4.50 - 6.40 M/uL [facility] LIC# [id number] HGB 15.5 13.5 - 18.0 g/dL [facility] LIC# [id number] HCT 46.9 40.0 - 54.0 % [facility] LIC# [id number] PLT 223 150 - 450 K/uL [facility] LIC# [id number] MCV 95.1 80.0 - 100.0 fL [facility] LIC# [id number] MCH 31.4 27.0 - 32.0 pg [facility] LIC# [id number] MCHC 33.0 32.0 - 36.0 g/dL [facility] LIC# [id number] RDW 11.7 11.5 - 14.5 % [facility] LIC# [id number] MPV 9.6 8.4 - 12.0 fL [facility] LIC# [id number] NRBC 0.00 0 /100 WBCs [facility] LIC# [id number] ABSOLUTE NRBC 0.00 0 K/uL [facility] LIC# [id number] DIFF METHOD Auto [facility] LIC# [id number] NEUTS 61.4 48.0 - 76.0 % [facility] LIC# [id number] LYMPHS 26.4 18.0 - 41.0 % [facility] LIC# [id number] MONOS 9.5 4.0 - 11.0 % [facility] LIC# [id number] EOS 1.7 0.0 - 5.0 % [facility] LIC# [id number] BASOS 0.6 0.0 - 1.5 % [facility] LIC# [id number] % IMMATURE GRANS 0.4 0.0 - 1.0 % [facility] LIC# [id number] ABSOLUTE NEUTS 2.97 1.92 - 7.60 K/uL [facility] LIC# [id number] ABSOLUTE LYMPHS 1.28 0.72 - 4.10 K/uL [facility] LIC# [id number] ABSOLUTE MONOS 0.46 0.16 - 1.10 K/uL [facility] LIC# [id number] ABSOLUTE EOS 0.08 0.00 - 0.50 K/uL [facility] LIC# [id number] ABSOLUTE BASOS 0.03 0.00 - 0.15 K/uL [facility] LIC# [id number] ABS IMMATURE GRANS 0.02 0.00 - 0.10 K/uL [facility] LIC# [id number] Blood 11/23/2024 12:3 9 PM EDT 11/23/2024 12:55 PM EDT us Garcia Ochoa MD LAB BLOOD ORDERABLES Fi nal Result [facility] LIC# [id number] [address] [place] [address] * (ABNORMAL) Testosterone, total (11/23/2024 12:39 PM EDT) TESTOSTERONE 11(L) 193 - 740 ng/dL [facility] LIC# [id number] Blood 11/23/2024 12:3 9 PM EDT 11/23/2024 12:55 PM EDT Garcia Ochoa MD LAB BLOOD ORDERABLES Fi nal Result [facility] LIC# [id number] [address] [place] [address] from Last [address] [place] [address] [place] [address] Care Teams Funeral Director Relationship Specialty Start Date End Date Jhon Yee MD [address] [place] [id number] PCP - General Internal Medicine 08/08/24 Mazin Esquivel MD, AURELIA [address] [place], [place] [address]- [address] [address] [email or web address] Radiation Oncology 02/08/23 Garcia Ochoa MD [address] [place] [phone] [email or web address] Oncology 02/08/23 Myranda Dumont RN [address] [place] [phone] [email or web address] Infusion Nurse 08/31/24 Additional Source Comments The information contained in this document represents components of the legal health record. It is not the complete legal health record.[facility]
--- NOTE | 2025-01-01 08:03 | A.OFFVIS_ITS ---
Vital Signs 01/01/25 08:07 Height 5 ft 8 in Weight 168 lb BMI 25.5 BP 116/70 Blood Pressure Location Rt brachial Position Sitting Pulse 70 Pulse Source Pulse Oximeter Pulse Oximetry (%) 98 Oxygen Delivery Method Room Air Intake Visit Reasons: colo screening Intake Note: New pt for recall colo. Last colo 2018 w/ Dr. Madden CC: C.O. intermittent constipation with BRB per rectum, and nausea. Pt reports recently finishing a round of chemotherapy for reported rectal cancer. 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 male with past medical history of hyperlipidemia, prostate CA, rectal CA, diabetes, hypertension is here today for pre colonoscopy screening.? Patient was sent to us by his PCP.? Last colonoscopy was in 2018.? Patient reports constipation occasional rectal bleeding. Patient reports recurrence of prostate CA with metastasis to his rectum. Patient has seen Oncology in [place] and has undergone radiation treatment. ? Denies history of difficulty with sedation or anesthesia in the past.? Negative for history of sleep apnea.? Denies any history of cardiac, renal, pulmonary, or hepatic disease.?? No history of infectious? diseases like hepatitis A, B, C, HIV or tuberculosis.? Patient is not on any anticoagulation [facility] Medical History Hyperlipidemia Hard of hearing Sarcoidosis Prostate cancer Diabetes mellitus Surgical History History of colonoscopy with polypectomy (~04/29/17) Family History Mother No problems noted. Father No problems noted. Social History Housing: House Patient Tobacco Use Status: Never used Tobacco e-Cigarette/Vaping Use: Never Used service: No Current occupational status: employed Cognitive needs: No Hearing needs: Yes (bilateral hearing aids.) Vision needs: Yes (rx glasses) Review of Systems Const Denies weight gain and Denies weight loss ENT Reports no additional complaints, Denies dysphagia and Denies odynophagia Card Reports no additional complaints Resp Reports no additional complaints GI Denies abdominal pain, Denies belching, Denies melena, Denies bloating, Denies change in bowel habits, Denies dysphagia, Denies excessive flatus, Denies dyspepsia, Denies heartburn, Denies diarrhea, Denies loose stools, Denies nausea, Denies odynophagia and Denies vomiting Reports no additional complaints Musc Reports no additional complaints Neuro Reports no additional complaints Psych Reports no additional complaints Endo Reports no additional complaints Physical Exam Vital Signs: Last Vital Signs Pulse 70 01/01/25 08:07 BP 116/70 01/01/25 08:07 Pulse Ox 98 01/01/25 08:07 Oxygen Delivery Method Room Air 01/01/25 08:07 BMI result Body Mass Index 25.5 Const General: healthy appearing, no acute distress and well developed Nutritional Appearance: well nourished Orientation/consciousness: patient oriented x3 Resp Effort & Inspection: normal respiratory effort, able to speak in complete sentences, no tracheal deviation and symmetric chest movement Auscultation: clear to auscultation bilaterally Cardio Rate: regular rate GI Inspection: Yes normal to inspection and No distended Palpation (GI): Soft to palpation, not firm, nontender and No hepatosplenomegaly present Auscultation: normal bowel sounds General: Yes no CVA tenderness Back/Spine/Pelvis Back: no CVA tenderness Skin General skin exam: elasticity normal, turgor normal and dry skin Neuro General: patient oriented x3 Psych Appearance: grossly normal Mental Status: mental status grossly normal Assessment & Plan Assessment & Plan (1) Screen for colon cancer: Code(s): Z12.11 - Encounter for screening for malignant neoplasm of colon (2) Epigastric pain: Code(s): R10.13 - Epigastric pain (3) Nausea: Code(s): R11.0 - Nausea Plan Patient denies any cardiac or respiratory symptoms.? Denies any issues with anesthesia in the past.? Denies any history of sleep apnea.? No history infectious diseases in the past or present.? Not on any anticoagulation therapy.? No family history of colon cancer.? Patient denies melena, hematochezia, unintentional weight loss or ribbon like stools.? Discussed at length the pre-procedure,? prep, diet & medications as well as what to expect prior, during and after the procedure.?? Stressed the importance of good bowel prep.? Recommended the use of Vaseline or Calmoseptine OTC & baby wipes with bowel movements to promote comfort.? ?Patient verbalizes understanding and agrees to plan of care.? He was given the opportunity to ask questions and all questions answered.? We will see him after the procedure.? Medications: New polyethylene glycol 3350 (Miralax) As directed by gastroenterology department at [facility] 238 grams PO ONCE 238 grams 0RF Z12.11 - Encounter for screening for malignant neoplasm of colon bisacodyl (Dulcolax (bisacodyl)) Start taking 2 tablet every night 7 days before the procedure and 1 day before procedure take 4 tablets at noon time followed by MiraLax prep 10 mg (2 x 5 mg) PO BEDTIME 16 tabs 0RF Z12.11 - Encounter for screening for malignant neoplasm of colon Coding Level of Care Code New Pt Level 4 (87527) Diagnoses Screen for colon cancer Z12.11 Epigastric pain R10.13 Nausea R11.0 Time Spent (min) 45 Comment 35 minutes spent with patient and additional 10 minutes spent reviewing his records
[2025-01-01 08:07] VITALS: BP 116/70; PULSE 70; O2SAT 98; BMI 25.5
== END 2025-01-01 09:49 | disposition home or self-care (01) ==
LOC: HO.HGI 07:52
PROVIDERS: PCP Internal Medicine; Visit Provider Nurse Practitioner Family
DX: Z01.818 Encounter for other preprocedural examination (principal); Z12.11 Encounter for screening for malignant neoplasm of colon; Z85.048 Personal history of other malignant neoplasm of rectum, rectosigmoid junction, and anus; R10.13 Epigastric pain; R11.0 Nausea
CPT/HCPCS: S0285

== ENCOUNTER → 2025-02-22 10:20 | Outpatient (BNV) | payer BC, SELFPAY | PROVIDERS: PCP Internal Medicine; Visit Provider Internal Medicine Gastroenterology | DX: Z12.11 Encounter for screening for malignant neoplasm of colon (principal); K63.5 Polyp of colon; K57.90 Diverticulosis of intestine, part unspecified, without perforation or abscess without bleeding; K64.8 Other hemorrhoids; K21.00 Gastro-esophageal reflux disease with esophagitis, without bleeding; K29.70 Gastritis, unspecified, without bleeding; K26.9 Duodenal ulcer, unspecified as acute or chronic, without hemorrhage or perforation | CPT/HCPCS: 43239; 45385 ==

== ENCOUNTER 2025-03-27 11:40 | Outpatient (AMB) | payer BC, SELFPAY ==
--- NOTE | 2025-03-27 11:41 | A.OFFVIS_ITS ---
Vital Signs 03/27/25 11:46 Height 5 ft 8 in Weight 168 lb BMI 25.5 BP 108/68 Blood Pressure Location Rt brachial Position Sitting Pulse 116 H Pulse Source Pulse Oximeter Pulse Oximetry (%) 98 Oxygen Delivery Method Room Air Intake Visit Reasons: s/p [place],EGD Justin Intake Note: Est pt for mgmt of GERD. S/P Double. CC; C/O intermittent reflux episodes despite current therapy. Pt also reports intermittent N+V. No additional sx or concerns at this time. 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 Denies any issues with anesthesia in the past.? Denies any history of sleep apnea.? No history infectious diseases in the past or present.? Not on any anticoagulation therapy.? No family history of colon cancer.? Patient denies melena, hematochezia, unintentional weight loss or ribbon like stools.? Discussed at length the pre-procedure,? prep, diet & medications as well as what to expect prior, during and after the procedure.?? Stressed the importance of good bowel prep.? Recommended the use of Vaseline or Calmoseptine OTC & baby wipes with bowel movements to promote comfort.? ?Patient verbalizes understanding and agrees to plan of care.? He was given the opportunity to ask questions and all questions answered.? We will see him after the procedure.? New polyethylene glycol 3350 (Miralax) As directed by gastroenterology department at [facility] 238 grams PO ONCE 238 grams 0RF Z12.11 bisacodyl (Dulcolax (bisacodyl)) Start taking 2 tablet every night 7 days before the procedure and 1 day before procedure take 4 tablets at noon time followed by MiraLax prep 10 mg (2 x 5 mg) PO BEDTIME 16 tabs 0RF Z12.11 UPPER ENDOSCOPY AND COLONOSCOPY Findings: Larynx: Normal Esophagus: GE junction at 37 cms. Focal esophagitis with edematous folds on the gastric side of GE junction - biopsies were obtained. No Edwards's. Stomach: Moderate diffuse gastric erythema - biopsies were obtained from the gastric body and antrum. Grade 2 flap valve on retroflexed examination of the cardia. Duodenum: Multiple 8-12 mm superficial chronic appearing ulcers in the apex of the bulb - biopsied Normal descending duodenum Biopsies were obtained from descending duodenum to check for celiac sprue Intervention: Biopsies as noted above COLONOSCOPY PROCEDURE NOTE Instrument: Olympus CF H 190 L variable stiffness adult colonoscope Monitoring: Vital signs and clinical assessment, intermittent blood pressure monitoring, continuous EKG monitoring, Pulse oximetry and Carbon Dioxide monitoring were done throughout the procedure. Please see anesthesia flowsheet. Colon withdrawl time was 25 minutes. Procedure: The patient was placed in the left lateral decubitis position and pre-procedure medications were administered. After a digital rectal examination of the ano-rectum, the video colonoscope was inserted into the rectum and advanced through the colon to the cecum. The colonoscope was slowly withdrawn in a retrograde panoramic fashion and the colon mucosa was carefully examined including a retroflexed view of the rectum. Findings and interventions are described below. Procedure Difficulty: Colon was long and there was some spasm and loop formation Findings: Terminal Ileum: Not evaluated Cecum: Normal Ascending Colon: Two 8 0 12'mm sessile polyps in the proximal ascending colon - removed with a hot snare. Nodular appearing mucosa in the right colon - random biopsies were obtained to check for microscopic. Moderate diverticulosis throughout the entire colon Transverse Colon: Moderate diverticulosis throughout the entire colon Descending Colon: Moderate diverticulosis throughout the entire colon Sigmoid Colon: Severe diverticulosis with luminal narrowing. Rectum: A few non-bleeding rectal telangiectasia in the distal 2-3 cms of the rectum Ano-rectum: Moderate internal hemorrhoids Colon preparation: Good after copious irrigation. [place] Bowel Preparation Scale Right colon; 2 Transverse colon: 3 Left colon; 3 (0 = Unprepared colon segment with mucosa not seen due to solid stool that cannot be cleared. 1 = Portion of mucosa of the colon segment seen, but other areas of the colon segment not well seen due to staining, residual stool and/or opaque liquid. 2 = Minor amount of residual staining, small fragments of stool and/or opaque liquid, but mucosa of colon segment seen well. 3 = Entire mucosa of colon segment seen well with no residual staining, small fragments of stool or opaque liquid) Impression and Post Procedure Diagnosis: Endoscopy Findings: ESOPHAGUS: Focal esophagitis with edematous folds on the gastric side of GE junction STOMACH: Moderate diffuse gastritis DUODENUM: Multiple 8-12 mm superficial chronic appearing ulcers in the apex of the bulb - biopsied Colonoscopy Findings: Two small to medium sized polyps were removed Moderate diverticulosis seen in the entire colon Moderate hemorrhoids on retroflexed exam - likely source for rectal bleeding. Plan: Repeat Colonoscopy in 3-5 years if polyps are adenomatous and due to history of rectal cancer A summary of above findings and relevant handouts were given to the patient. Omeprazole 20 mg daily for duodenal ulcers BIOPSIES SHOWED: A. Small bowel, biopsy: Small bowel mucosa with preserved villi and no specific change; no evidence of celiac disease. B. Duodenal ulcer, biopsy: Duodenal mucosa with predominantly preserved villi and features of chronic/non-specific duodenitis. C. Gastric antrum, biopsy: Gastric antral mucosa with mild reactive changes, small focus of intestinal metaplasia (complete) and minimal chronic inactive gastritis; negative for H. pylori, intestinal metaplasia and dysplasia. D. Gastric body, biopsy: Gastric body mucosa with minimal chronic inactive gastritis; negative for H. pylori, intestinal metaplasia and dysplasia. E. Esophagogastric junction, biopsy: Squamocolumnar mucosa with minimal chronic inflammation; negative for intestinal metaplasia and dysplasia. F. Colon, ascending, polyps: Polypoid colonic mucosa with no specific change (3 pieces); no adenomatous dysplasia seen. D. Colon, right, biopsy: Colonic mucosa with no specific change; no evidence of microscopic colitis. H. Colon, sigmoid nodule, biopsy: Polypoid colonic mucosa with minor crypt distortion, otherwise no specific change; no adenomatous dysplasia see Letter sent to the patient with biopsy results. Pt placed on the procedure recall list for repeat EGD in 3 years (FU of intestinal metaplasia in the gastric antrum) and colonoscopy in 5 years (hx of rectal cancer). TODAY'S VISIT: Patient is here today for follow-up. Patient denies any ill effects from the prep, anesthesia procedure itself. Patient reports to be feeling fairly well, however he noticed increasing symptoms. Patient was unable to be placed on PPI due to interaction with his medication that he takes for ADD. He was placed on famotidine instead. Patient reports that in the very beginning he was doing great. Swallowing without any issues and reflux was very well controlled. Recently occasionally he will have a feeling like swallowing is getting little harder and reflux is coming back. Unfortunately patient is unable to be placed on PPI unless his medication is changed. Patient is on Trulicity and gabapentin. Patient reports that on the of this month he will be done taking his chemo. Patient reports that his symptoms could be related to chemo. Patient denies any nausea or vomiting. Denies any dyspepsia or odynophagia. Denies melena, hematochezia, unintentional weight loss or ribbon like stools. Patient had normal colonoscopy, however due to history of rectal cancer patient will return in 5 years. H pylori not found. Small focus of intestinal metaplasia seen in the antrum of the stomach, recommendation was for 3 year follow-up. Patient was found to have duodenal ulcers as well. Patient reports that he is moving his bowels without any issues. Diverticulosis found on colonoscopy in sigmoid colon. [facility] Medical History (Updated 03/27/25 @ 18:[address] [facility]) History of rectal cancer Hyperlipidemia Hard of hearing Sarcoidosis Prostate cancer Diabetes mellitus Surgical History History of colonoscopy with polypectomy (03/05/25) Family History Mother No problems noted. Father No problems noted. Social History Housing: House Patient Tobacco Use Status: Never used Tobacco e-Cigarette/Vaping Use: Never Used service: No Current occupational status: employed Cognitive needs: No Hearing needs: Yes (bilateral hearing aids.) Vision needs: Yes (rx glasses) Review of Systems Const Denies weight gain and Denies weight loss ENT Reports no additional complaints, Denies dysphagia and Denies odynophagia Card Reports no additional complaints Resp Reports no additional complaints GI Denies abdominal pain, Denies belching, Denies melena, Denies bloating, Denies change in bowel habits, Denies dysphagia, Denies excessive flatus, Denies dy spepsia, Denies heartburn, Denies diarrhea, Denies loose stools, Denies nausea, Denies odynophagia and Denies vomiting Reports no additional complaints Musc Reports no additional complaints Neuro Reports no additional complaints Psych Reports no additional complaints Endo Reports no additional complaints Physical Exam Vital Signs: Last Vital Signs Pulse 116 H 03/27/25 11:46 BP 108/68 03/27/25 11:46 Pulse Ox 98 03/27/25 11:46 Oxygen Delivery Method Room Air 03/27/25 11:46 BMI result Body Mass Index 25.5 Const General: healthy appearing, no acute distress and well developed Nutritional Appearance: well nourished Orientation/consciousness: patient oriented x3 Resp Effort & Inspection: normal respiratory effort, able to speak in complete sentences, no tracheal deviation and symmetric chest movement Auscultation: clear to auscultation bilaterally Cardio Rate: regular rate GI Inspection: Yes normal to inspection and No distended Palpation (GI): Soft to palpation, not firm, nontender and No hepatosplenomegaly present Auscultation: normal bowel sounds General: Yes no CVA tenderness Back/Spine/Pelvis Back: no CVA tenderness Skin General skin exam: elasticity normal, turgor normal and dry skin Neuro General: patient oriented x3 Psych Appearance: grossly normal Mental Status: mental status grossly normal Assessment & Plan Assessment & Plan (1) Multiple duodenal ulcers: Code(s): K29.81 - Duodenitis with bleeding Category: Medical (2) History of rectal cancer: Code(s): Z85.048 - Personal history of other malignant neoplasm of rectum, rectosigmoid junction, and anus Category: Medical (3) GERD (gastroesophageal reflux disease): Code(s): K21.9 - Gastro-esophageal reflux disease without esophagitis Qualifiers: Esophagitis presence: esophagitis presence not specified Qualified Code(s): K21.9 - Gastro-esophageal reflux disease without esophagitis (4) Epigastric pain: Code(s): R10.13 - Epigastric pain (5) Dysphagia: Code(s): R13.10 - Dysphagia, unspecified Qualifiers: Dysphagia type: esophageal phase Qualified Code(s): R13.19 - Other dysphagia (6) Status post colonoscopy: Code(s): Z98.890 - Other specified postprocedural states Plan Colonoscopy in 5 years due to history of rectal cancer. Polyps completely benign. Recommendation for repeating the endoscopy was 3 years, however if patient continue to have epigastric pain, reflux and dysphagia we will send him sooner. Discussed with patient avoiding dietary triggers and late night snacking. Staying upright for minimum 3 hours after meals discussed with patient. Patient will follow-up in our office in 6 months. Patient verbalizes understanding of instructions. He was given the opportunity to ask questions and all questions answered. Thank you for allowing me to participate in his care Coding Level of Care Code Est Pt Level 4 (47421) Add On Problem Visit Only Diagnoses Multiple duodenal ulcers K29.81 History of rectal cancer Z85.048 Gastroesophageal reflux disease, unspecified whether esophagitis present K21.9 Esophagitis presence: esophagitis presence not specified Epigastric pain R10.13 Esophageal dysphagia R13.19 Dysphagia type: esophageal phase Status post colonoscopy Z98.890 Time Spent (min) 40 Comment 25 minutes spent with patient and additional 15 minutes spent reviewing his records
[2025-03-27 11:46] VITALS: BP 108/68; PULSE 116; O2SAT 98; BMI 25.5
== END 2025-03-27 12:11 | disposition home or self-care (01) ==
LOC: HO.HGI 11:41
PROVIDERS: PCP Internal Medicine; Visit Provider Nurse Practitioner Family
DX: K29.81 Duodenitis with bleeding (principal); Z85.048 Personal history of other malignant neoplasm of rectum, rectosigmoid junction, and anus; K21.9 Gastro-esophageal reflux disease without esophagitis; R10.13 Epigastric pain; R13.19 Other dysphagia; Z98.890 Other specified postprocedural states
CPT/HCPCS: 99214